=== PATIENT | female | born 1985 | race Caucasian/White ===

== ENCOUNTER 2016-10-16 15:29 | Emergency (ER) | payer OTHER ==
--- NOTE | 2016-10-16 16:27 | ED NURSING NOTES ---
Clinical Report - Nurses [facility] [place] [address] 10/16/2016 15:29 Patient: PENNY RODRIGUEZ NURSING PROGRESS NOTES ( Patient told admitting rep she did not wish to wait any longer and was leaving). --16:27 Kayla Bajwa, ER Tech1. DISPOSITION / DISCHARGE The patient left the Emergency Department before triage. The patient appears to be oriented x4. She stated is leaving the ED due to personal reasons and the long waiting time. She left the Emergency Department ambulatory and via private vehicle. ( pt notified front end software engineer and front end software engineer notified ER.). --16:32 Rica Cisneros R.N. Locked/Released at 10/16/2016 16:32 by Rica Cisneros R.N.
--- NOTE | 2016-10-16 16:27 | ED NURSING NOTES ---
Clinical Report - Nurses [facility] [place] [address] 10/16/2016 15:29 Patient: PENNY RODRIGUEZ NURSING PROGRESS NOTES ( Patient told admitting rep she did not wish to wait any longer and was leaving). --16:27 Kayla Bajwa, ER Tech1. DISPOSITION / DISCHARGE The patient left the Emergency Department before triage. The patient appears to be oriented x4. She stated is leaving the ED due to personal reasons and the long waiting time. She left the Emergency Department ambulatory and via private vehicle. ( pt notified front end driver and front end driver notified ER.). --16:32 Rica Cisneros R.N. Locked/Released at 10/16/2016 16:32 by Rica Cisneros R.N.
--- NOTE | 2016-10-16 16:32 | ED MAR SUMMARY ---
..... Medication Administration Record [facility] [address] [place], [place] [id number] Patient: PENNY RODRIGUEZ Visit ID: [id number] 31y, F Weight: (not available) Height/Length: (not available) BMI: (not available) ALLERGIES:
--- NOTE | 2016-10-16 16:32 | ED MED RECONCILIATION SUMMARY ---
Patient: PENNY RODRIGUEZ Medication Reconciliation Report [facility] VisitID: [id number] [address] [place] [address] 31y, F Registration Date/Time: 10/16/2016 Weight: (not available) Height/Length: (not available) BMI: (not available) ALLERGIES: The patient's Home Medications are listed below: Not obtained. The source(s) of the original Home Medication information: Not obtained. The following Medications were given to the patient in the Emergency Department: None. The following Medications were prescribed to the patient: None.
--- NOTE | 2016-10-16 16:32 | ED MAR SUMMARY ---
..... Medication Administration Record [facility] [address] [place] [place], [place] [id number] Patient: PENNY RODRIGUEZ Visit ID: [id number] 31y, F Weight: (not available) Height/Length: (not available) BMI: (not available) ALLERGIES:
--- NOTE | 2016-10-16 16:32 | ED MED RECONCILIATION SUMMARY ---
Patient: PENNY RODRIGUEZ Medication Reconciliation Report [facility] VisitID: [id number] [address] [place] [address] 31y, F Registration Date/Time: 10/16/2016 Weight: (not available) Height/Length: (not available) BMI: (not available) ALLERGIES: The patient's Home Medications are listed below: Not obtained. The source(s) of the original Home Medication information: Not obtained. The following Medications were given to the patient in the Emergency Department: None. The following Medications were prescribed to the patient: None.
== END 2016-10-16 16:30 | disposition left against medical advice (07) ==
LOC: ED SRH 15:29
DX: Z53.21 Procedure and treatment not carried out due to patient leaving prior to being seen by health care provider (principal)

== ENCOUNTER 2016-10-21 13:32 | Emergency (ER) | payer OTHER ==
--- NOTE | 2016-10-21 14:05 | ED ORDER SUMMARY ---
..... Patient: PENNY RODRIGUEZ OrderSheet [facility] VisitID: [id number] [address] [place] [address] 31y, F Registration Date/Time: 10/21/2016 ORDER SHEET Weight: 61.6 kg Allergies: Sulfa Antibiotics GENERAL ORDERS: MEDICATION ORDERS: Clindamycin PO 300 mg (NOW) (14:02 10/21/2016 Lynne Hair.A.-Jane) (14:[facility] IV FLUIDS: ORDER SHEET NOTES: [Electronically signed by Yesenia yHde (14:12 10/21/2016)] [Electronically signed by Kathleen Tai-Jane (14:27 10/21/2016)] [Electronically locked/signed by Yesenia Hyde (14:12 10/21/2016)]
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
--- NOTE | 2016-10-21 14:05 | ED CLINICAL REPORT ---
Clinical Report - Physicians/Mid Levels [facility] [address] [place] [address] 10/21/2016 13:32 Patient: PENNY RODRIGUEZ Time Seen: 14:16 Oct 21 2016. Arrived- By private vehicle. HISTORY OF PRESENT ILLNESS Chief Complaint: SKIN RASH. This started 2 - 3 days. (Patient admits to meth use earlier, has been on recent S, has had lesions to her chin, as well as lesions to her upper shoulder as well as hands, recent friend's with scabies. Patient concern for the same. Denies any shortness of breath, chest pain denies fevers or chills.). REVIEW OF SYSTEMS No hoarseness, nausea or difficulty with urination. ADDITIONAL NOTES The nursing notes have been reviewed. PHYSICAL EXAM Vital Signs: 10/21/2016 13:52 BP: 131/80. HR: 97. RR: 16. O2 saturation: 99%. Temp: 98.2 F. Appearance: Alert. ENT: Ears normal. Nose normal. ( uvula midline). Neck: Neck supple. No lymphadenopathy. CVS: Normal heart rate and rhythm. Heart sounds normal. Respiratory: No respiratory distress. Breath sounds normal. Skin: Skin warm. Erythema (of chin with minimal swelling, no indurations.). Skin rash present- posterior shoulder and interdigit maculapapular. PROGRESS AND PROCEDURES Course of Care: Patient here in the ER afebrile, with signs of cellulitis to the chin. Patient is otherwise stable, small maculopapular rash, with exposure to recent scabies, this will cover for both. Patient under influence in the ER. No other complaints, afebrile nonseptic. Stable for discharge. Patient is stable. The patient's symptoms are unchanged. Patient/family counseled. Disposition: Discharged. CLINICAL IMPRESSION Cellulitis of the chin. Substance abuse problems: abuse of methamphetamine. Substance dependence problems: dependence on methamphetamine. (under influence in ER). Scabies INSTRUCTIONS Prescription Medications: Clindamycin 300 mg: take 1 capsule orally every 6 hours for 7 days. No refills. Elimite 5% Cream: Shower and dry thoroughly, then apply cream to whole body from neck down, leave on 8 hours then shower thoroughly and launder clothes and bedclothes in hot water. Repeat in 1 week if needed. Dispense two (2) tubes. No refills. Substitution is permissible. Follow-up: Follow up with your doctor in four days. (Electronically signed by Kathleen Tai P.A.-C 10/21/2016 14:27)
--- NOTE | 2016-10-21 14:05 | ED ORDER SUMMARY ---
..... Patient: PENNY RODRIGUEZ OrderSheet [facility] VisitID: [id number] [address] [place] [address] 31y, F Registration Date/Time: 10/21/2016 ORDER SHEET Weight: 61.6 kg Allergies: Sulfa Antibiotics GENERAL ORDERS: MEDICATION ORDERS: Clindamycin PO 300 mg (NOW) (14:02 10/21/2016 Lynne Hair.A.-Jane) (14[facility] IV FLUIDS: ORDER SHEET NOTES: [Electronically signed by Yesenia Hyde (14:12 10/21/2016)] [Electronically signed by Kathleen Tai-Jane (14:27 10/21/2016)] [Electronically locked/signed by Yesenia Hyde (14:12 10/21/2016)]
--- NOTE | 2016-10-21 14:05 | ED CLINICAL REPORT ---
Clinical Report - Physicians/Mid Levels [facility] [address] [place] [address] 10/21/2016 13:32 Patient: PENNY RODRIGUEZ Time Seen: 14:16 Oct 21 2016. Arrived- By private vehicle. HISTORY OF PRESENT ILLNESS Chief Complaint: SKIN RASH. This started 2 - 3 days. (Patient admits to meth use earlier, has been on recent S, has had lesions to her chin, as well as lesions to her upper shoulder as well as hands, recent friend's with scabies. Patient concern for the same. Denies any shortness of breath, chest pain denies fevers or chills.). REVIEW OF SYSTEMS No hoarseness, nausea or difficulty with urination. ADDITIONAL NOTES The nursing notes have been reviewed. PHYSICAL EXAM Vital Signs: 10/21/2016 13:52 BP: 131/80. HR: 97. RR: 16. O2 saturation: 99%. Temp: 98.2 F. Appearance: Alert. ENT: Ears normal. Nose normal. ( uvula midline). Neck: Neck supple. No lymphadenopathy. CVS: Normal heart rate and rhythm. Heart sounds normal. Respiratory: No respiratory distress. Breath sounds normal. Skin: Skin warm. Erythema (of chin with minimal swelling, no indurations.). Skin rash present- posterior shoulder and interdigit maculapapular. PROGRESS AND PROCEDURES Course of Care: Patient here in the ER afebrile, with signs of cellulitis to the chin. Patient is otherwise stable, small maculopapular rash, with exposure to recent scabies, this will cover for both. Patient under influence in the ER. No other complaints, afebrile nonseptic. Stable for discharge. Patient is stable. The patient's symptoms are unchanged. Patient/family counseled. Disposition: Discharged. CLINICAL IMPRESSION Cellulitis of the chin. Substance abuse problems: abuse of methamphetamine. Substance dependence problems: dependence on methamphetamine. (under influence in ER). Scabies INSTRUCTIONS Prescription Medications: Clindamycin 300 mg: take 1 capsule orally every 6 hours for 7 days. No refills. Elimite 5% Cream: Shower and dry thoroughly, then apply cream to whole body from neck down, leave on 8 hours then shower thoroughly and launder clothes and bedclothes in hot water. Repeat in 1 week if needed. Dispense two (2) tubes. No refills. Substitution is permissible. Follow-up: Follow up with your doctor in four days. (Electronically signed by Kathleen Tai P.A.-C 10/21/2016 14:27)
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
--- NOTE | 2016-10-21 14:27 | ED MAR SUMMARY ---
..... Medication Administration Record [facility] [address] [place] [address] Patient: PENNY RODRIGUEZ Visit ID: [id number] 31y, F Weight: 61.6 kg Height/Length: 64 in BMI: 23.3 ALLERGIES: Sulfa Antibiotics Given 14:11 10/21/2016 Yesenia Hyde, Medication Administered: CLINDAMYCIN [PO], Dose: 300 mg PO. Medication Ordered: Clindamycin PO 300 mg (NOW).
--- NOTE | 2016-10-21 14:27 | ED MED RECONCILIATION SUMMARY ---
Patient: PENNY RODRIGUEZ Medication Reconciliation Report [facility] VisitID: [id number] [address] [place] [address] 31y, F Registration Date/Time: 10/21/2016 Weight: 61.6 kg Height/Length: 64 in. BMI: 23.3 ALLERGIES: Sulfa Antibiotics The patient's Home Medications are listed below: THE FOLLOWING MEDICATIONS NEED TO BE RECONCILED: Keflex Oral The source(s) of the original Home Medication information: Not obtained. The following Medications were given to the patient in the Emergency Department: Clindamycin [PO] PO 300 mg, administered: 10/21/2016 2:11:00 PM The following Medications were prescribed to the patient: Clindamycin 300 mg: take 1 capsule orally every 6 hours for 7 days. No refills. -- Kathleen Tai, P.A.Alhaji Elimite 5% Cream: Shower and dry thoroughly, then apply cream to whole body from neck down, leave on 8 hours then shower thoroughly and launder clothes and bedclothes in hot water. Repeat in 1 week if needed. Dispense two (2) tubes. No refills. Substitution is permissible. -- Kathleen Tai, P.A.-C
--- NOTE | 2016-10-21 14:27 | ED MED RECONCILIATION SUMMARY ---
Patient: PENNY RODRIGUEZ Medication Reconciliation Report [facility] VisitID: [id number] [address] [place] [address] 31y, F Registration Date/Time: 10/21/2016 Weight: 61.6 kg Height/Length: 64 in. BMI: 23.3 ALLERGIES: Sulfa Antibiotics The patient's Home Medications are listed below: THE FOLLOWING MEDICATIONS NEED TO BE RECONCILED: Keflex Oral The source(s) of the original Home Medication information: Not obtained. The following Medications were given to the patient in the Emergency Department: Clindamycin [PO] PO 300 mg, administered: 10/21/2016 2:11:00 PM The following Medications were prescribed to the patient: Clindamycin 300 mg: take 1 capsule orally every 6 hours for 7 days. No refills. -- Kathleen Tai, P.A.Alhaji Elimite 5% Cream: Shower and dry thoroughly, then apply cream to whole body from neck down, leave on 8 hours then shower thoroughly and launder clothes and bedclothes in hot water. Repeat in 1 week if needed. Dispense two (2) tubes. No refills. Substitution is permissible. -- Kathleen Tai, P.A.-C
--- NOTE | 2016-10-21 14:27 | ED DISCHARGE INSTRUCTIONS ---
Patient: PENNY RODRIGUEZ General Instructions [facility] VisitID: [id number] [place] [address] 31y, F Registration Date/Time: 10/21/2016 Cellulitis of the chin. Substance abuse problems: abuse of methamphetamine. Substance dependence problems: dependence on methamphetamine. (under influence in ER). Scabies INSTRUCTIONS Prescription Medications: Clindamycin 300 mg: take 1 capsule orally every 6 hours for 7 days. No refills. Elimite 5% Cream: Shower and dry thoroughly, then apply cream to whole body from neck down, leave on 8 hours then shower thoroughly and launder clothes and bedclothes in hot water. Repeat in 1 week if needed. Dispense two (2) tubes. No refills. Substitution is permissible. Follow-up: Follow up with your doctor in four days. ADDITIONAL INFORMATION Cellulitis You have an infection of the skin known as cellulitis. This usually starts with a scrape, cut, insect bite, blister or other opening in the skin which becomes infected. This is a serious condition. It must be watched closely to be sure the infection is not spreading. With antibiotic treatment, the size of the red area will gradually shrink in size until the skin returns to normal. This will take 7-10 days. The red area should never increase in size once the antibiotic medicine has been started. Occasionally, an infection will be resistant to one antibiotic and another one will have to be used. Home Care: 1) Limit the use of the affected part, since excess movement can cause the infection to spread. 2) If the infection is on your leg, walk as little as possible during the first few days of the treatment. Keep your leg elevated while sitting. This will reduce swelling. 3) Take all of the antibiotic medicine exactly as directed until it is gone. Be careful not to miss any doses, especially during the first seven days. Follow Up with your doctor or this facility as directed. Check the infected area daily for the warning signs listed below. Get Prompt Medical Attention if any of the following occur: -- Spreading area of redness -- Increasing swelling or pain -- Appearance of pus or drainage -- Fever over 100.4 F (38.0 C) oral, or over 101.4 F (38.6 C) rectal, after two days on antibiotics Facial Cellulitis You have an infection of the skin known as cellulitis. This usually starts with a scrape, cut or insect bite which becomes infected. It may also occur from an infected oil gland (pimple) or hair follicle. This can be a serious condition and must be watched closely to be sure the infection is not spreading. With antibiotic treatment, the size of the red area will gradually shrink in size until the skin returns to normal. This will take 7-10 days. The red area should never increase in size once the antibiotic medicine has been started. Occasionally, an infection will be resistant to one antibiotic and another one will have to be used. Home Care: 1) Take all of the antibiotic medicine exactly as prescribed until it is gone. Be careful not to miss any doses, especially during the first few days. 2) A cool compress (face cloth soaked in cool water) applied to the face may help with the swelling and pain. 3) You may use acetaminophen (Tylenol) or ibuprofen (Motrin, Advil) to control pain, unless another medicine was prescribed. [ NOTE : If you have chronic liver or kidney disease or ever had a stomach ulcer or GI bleeding, talk with your doctor before using these medicines.] (Aspirin should never be used in anyone under 18 years of age who is ill with a fever. It may cause severe liver damage.) Follow Up with your doctor or this facility as directed. Check the infected area daily for the warning signs listed below. Get Prompt Medical Attention if any of the following occur: -- Increasing area of redness, swelling or pain -- Pus or fluid drainage from the skin or the eye -- Fever of 100.5 F (38 C) oral or 101.5 F (38.6 C) rectal for more than two days on antibiotics -- Eyelid swells shut -- Increasing headache or neck pain -- Unusual drowsiness or confusion -- Convulsion (seizure) Scabies Scabies is a skin disease caused by a tiny insect that can only be seen with a microscope. Scabies roseline under the skin and cause an itchy bumpy rash on the hands, feet, armpits, buttocks and groin area. Preventing Spread To Others: Scabies is highly contagious. It is easily spread by close personal contact or by sharing bed linens or clothing used by an infected person. It may take 4-6 weeks for symptoms to appear after being exposed. Everyone living in the house with an infected person, as well as sexual partners of an infected person, should be treated at the same time. After the first treatment, you will no longer be contagious and you may return to work, school or daycare. Home Care: Clothing Care Machine wash in hot water all sheets, towels, pillowcases, underwear, pajamas and any other clothing recently worn. Use the hot cycle of a dryer or use a hot iron to sterilize. Items that are difficult to wash such as coats, jackets, blankets and spreads can be sealed in a plastic trash bag for four days. (The insects after three days off the human body.) Using Medicine Use the medicine (Kwell or Elimite) exactly as prescribed. Apply it at bedtime from the chin down to your toes, covering all of your skin. Do this even in areas that don't seem infected! Avoid getting the medicine in your eyes and the sensitive areas around the vagina and tip of the penis. If it gets in a sensitive area, rinse with lots of water. Wash off the medicine 8-14 hours later. Do not leave it on the skin longer than directed and do not use it more often than directed. Otherwise, side effects may occur. A single treatment will kill the mites in the skin right away, but it may take 2-4 weeks for all of the itching and rash to go away. Itching may increase slightly right after the treatment, but you should be better by the end of the first week. Women should tell their doctor if they are nursing or think they may be before using this medicine. Itching Oral Benadryl (diphenhydramine) is an antihistamine available at drug and grocery stores. Unless a prescription antihistamine was given, Benadryl may be used to reduce itching if large areas of the skin are involved. Use lower doses during the daytime and higher doses at bedtime since the drug may make you sleepy. [NOTE: Do not use Benadryl if you have glaucoma or if you are a man with trouble urinating due to an enlarged prostate.] Claritin (loratidine) is an antihistamine that causes less drowsiness and is a good alternative for daytime use. For severe itch attacks, apply an ice pack (ice cubes in a plastic bag, wrapped in a towel) or use Lanacaine, Lanacort or Solarcaine (or other medicines containing benzocaine, sold without a prescription). Follow Up with your doctor or as directed if your symptoms do not improve after 1 week. Get Prompt Medical Attention if any of the following occur: Increasing redness of the skin Yellow-brown crusts or drainage from the sores Fever of 100.4F (38C) or higher, or as directed by your healthcare provider Permethrin Topical cream What is this medicine? PERMETHRIN (per METH rin) skin cream is used to treat scabies. How should I use this medicine? This medicine is for external use only. Do not take by mouth. Follow the directions on the prescription label. A bath or shower is NOT recommended before applying this medicine. Thoroughly rub the cream into all skin surfaces, from your head to the soles of your feet. It is important to apply it everywhere on your body, not just where the rash is. Apply the cream between fingers and toe creases, in the folds of the wrist and waistline, in the cleft of the buttocks, on the genitals, and in the belly button. Use a toothpick to apply the cream beneath your fingernails and toenails. Nails should be cut short. If you have little or no hair, or you are applying the cream to an or young child, make sure you rub the cream into the neck, scalp, hairline, temples, and forehead. Leave it on for 8 to 14 hours, then remove it by bathing and shampooing. If you are applying this medicine to another person, wear plastic or disposable gloves to protect yourself from infestation. Do not get this medicine in your eyes. If you do, rinse out with plenty of cool tap water. Talk to your clay thrower regarding the use of this medicine in children. While this drug may be prescribed for children as young as 2 months of age for selected conditions, precautions do apply. What side effects may I notice from receiving this medicine? Side effects that usually do not require medical attention (report to your doctor or health healthcare representative if they continue or are bothersome): itching numbness rash redness or mild swelling of the skin stinging or burning tingling sensation What may interact with this medicine? Interactions are not expected. Do not use any other skin products on the affected area without telling your doctor or health healthcare representative. What if I miss a dose? This does not apply. Where should I keep my medicine? Keep out of the reach of children. Store at room temperature away from heat and direct light. Do not refrigerate or freeze. Throw away any unused medicine after the expiration date. What should I tell my health care provider before I take this medicine? They need to know if you have any of these conditions: asthma an unusual or allergic reaction to permethrin, veterinary or household insecticides, other medicines, chrysanthemums, foods, dyes, or preservatives or trying to get breast-feeding What should I watch for while using this medicine? It is not unusual for itching and rash to continue for as long as 2 to 4 weeks after treatment. These symptoms may be a temporary reaction to the remains of the mites. This does not mean this cream did not work or that it needs to be reapplied. If you feel that the itching and rash is intense or if it continues beyond 4 weeks, talk to your doctor or health healthcare representative right away. Scabies is spread by direct skin contact with an infected person. Family members and sexual partners may require treatment with this medicine. You should discuss this with your doctor or health healthcare representative. Using a normal washing cycle, you should wash all clothing, towels and bed linen that has touched your skin. You do not need to rewash clean clothing that has not yet been worn. [place], furniture, rugs, floors, and durand do not need to be cleaned in any special manner. You have been given the following additional information: Cellulitis Cellulitis, Facial Scabies Permethrin Topical cream (Electronically signed by Kathleen Tai P.A.-C 10/21/2016 14:27)
--- NOTE | 2016-10-21 14:27 | ED MAR SUMMARY ---
..... Medication Administration Record [facility] [address] [place] [address] Patient: PENNY RODRIGUEZ Visit ID: [id number] 31y, F Weight: 61.6 kg Height/Length: 64 in BMI: 23.3 ALLERGIES: Sulfa Antibiotics Given 14:11 10/21/2016 Yesenia Hyde, Medication Administered: CLINDAMYCIN [PO], Dose: 300 mg PO. Medication Ordered: Clindamycin PO 300 mg (NOW).
== END 2016-10-21 14:10 | disposition home or self-care (01) ==
LOC: ED SRH 13:32
DX: L03.211 Cellulitis of face (principal); B86 Scabies; F15.20 Other stimulant dependence, uncomplicated

== ENCOUNTER 2016-10-21 19:56 | Emergency (ER) | payer OTHER ==
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
--- NOTE | 2016-10-21 21:25 | ED ORDER SUMMARY ---
..... Patient: PENNY RODRIGUEZ OrderSheet [facility] VisitID: [id number] [place] [address] 31y, F Registration Date/Time: 10/21/2016 ORDER SHEET Weight: 61.6 kg Allergies: Bactrim GENERAL ORDERS: EKG - ER Stat (20:20 10/21/2016 Tejinder R.N. verbal order read back to EKoroleva P.A.-C) (Ack 20:22 CHagerty ER Community Facilitator) (20:30 CHagerty ER Community Facilitator) Chest 2V Urgent (20:32 10/21/2016 EKoroleva P.A.-C) (20:39 JEverettElena R.N.) Cardiac Panel Stat (20:32 10/21/2016 EKoroleva P.A.-C) (Ack 20:43 CHagerty ER Community Facilitator) (20:52 JEverettElena R.N.) MEDICATION ORDERS: Zofran ODT PO 4 mg (NOW) (21:08 10/21/2016 EKoroleva P.A.-C) (21:11 Tejinder R.N.) Clindamycin PO 300 mg (NOW) (21:24 10/21/2016 EKoroleva P.A.-C) (Ack 21:32 JDeElena R.N.) (22:01 ReyesDeElena R.N.) IV FLUIDS: ORDER SHEET NOTES: [Electronically signed by Kathleen Tai PFarhadAFarhad-C (21:46 10/21/2016)] [Electronically signed by Saran Chacon R.N. (22:01 10/21/2016)] [Electronically locked/signed by Saran Chacon R.N. (22:10/21/2016)]
--- NOTE | 2016-10-21 21:25 | ED ORDER SUMMARY ---
..... Patient: PENNY RODRIGUEZ OrderSheet [facility] VisitID: [id number] [place] [address] 31y, F Registration Date/Time: 10/21/2016 ORDER SHEET Weight: 61.6 kg Allergies: Bactrim GENERAL ORDERS: EKG - ER Stat (20:20 10/21/2016 Tejinder R.N. verbal order read back to EKoroleva P.A.-C) (Ack 20:22 CHagerty ER Electrotyper Apprentice) (20:30 CHagerty ER Electrotyper Apprentice) Chest 2V Urgent (20:32 10/21/2016 EKoroleva P.A.-C) (20:39 JEverettElena R.N.) Cardiac Panel Stat (20:32 10/21/2016 EKoroleva P.A.-C) (Ack 20:43 CHagerty ER Electrotyper Apprentice) (20:52 JEverettElena R.N.) MEDICATION ORDERS: Zofran ODT PO 4 mg (NOW) (21:08 10/21/2016 EKoroleva P.A.-C) (21:11 Tejinder R.N.) Clindamycin PO 300 mg (NOW) (21:24 10/21/2016 EKoroleva P.A.-C) (Ack 21:32 JDeElena R.N.) (22:01 ReyesDeElena R.N.) IV FLUIDS: ORDER SHEET NOTES: [Electronically signed by Kathleen Tai PFarhadAFarhad-C (21:46 10/21/2016)] [Electronically signed by Saran Chacon R.N. (22:01 10/21/2016)] [Electronically locked/signed by Saran Chacon R.N. (22:10/21/2016)]
--- NOTE | 2016-10-21 21:25 | ED CLINICAL REPORT ---
Clinical Report - Physicians/Mid Levels [facility] [address] [place] [address] 10/21/2016 19:57 Patient: [id number] Time Seen: 20:34 Oct 21 2016. Arrived- By private vehicle. Historian- patient. HISTORY OF PRESENT ILLNESS Chief Complaint: "GOT THE SHAKES". Wants to stop drug use. No fever, vomiting, diarrhea, tremors or seizure. She has had nausea. Not confused. Patient reports sensation of bugs crawling on her. Reports chest pain. Reports back pain with shoulder pain. He reports. Sats are crawling on her face and skin. Pt with no fevers. REcent exposure to scabies, believes warms on her skin. REcent skin rash. No injuries noted. REVIEW OF SYSTEMS The patient has not had weight loss. No headache, dizziness, sore throat or joint pain. No difficulty walking. All systems otherwise negative, except as recorded above. SOCIAL HISTORY History of drug use meth. Has place to stay. ADDITIONAL NOTES The nursing notes have been reviewed. PHYSICAL EXAM Vital Signs: 10/21/2016 20:08 BP: 119/82. HR: 100. RR: 18. O2 saturation: 100%. Temp: 99 F. Pain level now: 8/10. Appearance: Alert. No acute distress. Head: Head atraumatic. ENT: Airway intact. Neck: Normal inspection. No meningeal signs. CVS: Normal heart rate and rhythm. Heart sounds normal. Respiratory: No respiratory distress. Breath sounds normal. No decreased air movement. Back: Normal inspection. Skin: Skin warm. Normal skin color. Neuro: Alert. LABS, X-RAYS, AND EKG EKG: EKG time: (2029). No acute process. No acute ischemia. Rate: 94. Normal P waves. Normal TEMO. Normal QRS complex. Normal axis. Normal ST and T waves and QT. The study has been interpreted contemporaneously. The study has been independently viewed by me. The EKG appears to be a good tracing. Chest X-ray: No acute disease. Normal lung markings present. Normal heart size. Mediastinum normal. Great vessels normal. Interpretation time: 2100. PROGRESS AND PROCEDURES Course of Care: No new murmor, afebrile. Pt with very vague multiple sx, with second er visit. PERC: 0 criteria No need for further workup, as <2% chance of PE. Patient is stable. Patient/family counseled. Medical Decision Making: The differential diagnosis includes, but is not limited to, coronary artery disease, pulmonary embolism, aortic dissection, pneumonia, gastroesophageal reflux disease, esophageal spasm, chest wall pain, costochondritis and pleurisy. The patient's Well's criteria suggests low risk. CLINICAL IMPRESSION Chronic substance abuse. Facial cellulitis Scabies INSTRUCTIONS (please take your scabies medications as well as your clindamycin). (Electronically signed by Kathleen Tai P.A.-C 10/21/2016 21:46)
--- NOTE | 2016-10-21 21:25 | ED CLINICAL REPORT ---
Clinical Report - Physicians/Mid Levels [facility] [address] [place] [place] [address] 10/21/2016 19:57 [id number] Time Seen: 20:34 Oct 21 2016. Arrived- By private vehicle. Historian- patient. HISTORY OF PRESENT ILLNESS Chief Complaint: "GOT THE SHAKES". Wants to stop drug use. No fever, vomiting, diarrhea, tremors or seizure. She has had nausea. Not confused. Patient reports sensation of bugs crawling on her. Reports chest pain. Reports back pain with shoulder pain. He reports. Sats are crawling on her face and skin. Pt with no fevers. REcent exposure to scabies, believes warms on her skin. REcent skin rash. No injuries noted. REVIEW OF SYSTEMS The patient has not had weight loss. No headache, dizziness, sore throat or joint pain. No difficulty walking. All systems otherwise negative, except as recorded above. SOCIAL HISTORY History of drug use meth. Has place to stay. ADDITIONAL NOTES The nursing notes have been reviewed. PHYSICAL EXAM Vital Signs: 10/21/2016 20:08 BP: 119/82. HR: 100. RR: 18. O2 saturation: 100%. Temp: 99 F. Pain level now: 8/10. Appearance: Alert. No acute distress. Head: Head atraumatic. ENT: Airway intact. Neck: Normal inspection. No meningeal signs. CVS: Normal heart rate and rhythm. Heart sounds normal. Respiratory: No respiratory distress. Breath sounds normal. No decreased air movement. Back: Normal inspection. Skin: Skin warm. Normal skin color. Neuro: Alert. LABS, X-RAYS, AND EKG EKG: EKG time: (2029). No acute process. No acute ischemia. Rate: 94. Normal P waves. Normal TEMO. Normal QRS complex. Normal axis. Normal ST and T waves and QT. The study has been interpreted contemporaneously. The study has been independently viewed by me. The EKG appears to be a good tracing. Chest X-ray: No acute disease. Normal lung markings present. Normal heart size. Mediastinum normal. Great vessels normal. Interpretation time: 2100. PROGRESS AND PROCEDURES Course of Care: No new murmor, afebrile. Pt with very vague multiple sx, with second er visit. PERC: 0 criteria No need for further workup, as <2% chance of PE. Patient is stable. Patient/family counseled. Medical Decision Making: The differential diagnosis includes, but is not limited to, coronary artery disease, pulmonary embolism, aortic dissection, pneumonia, gastroesophageal reflux disease, esophageal spasm, chest wall pain, costochondritis and pleurisy. The patient's Well's criteria suggests low risk. CLINICAL IMPRESSION Chronic substance abuse. Facial cellulitis Scabies INSTRUCTIONS (please take your scabies medications as well as your clindamycin). (Electronically signed by Kathleen Tai P.A.-C 10/21/2016 21:46)
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
--- NOTE | 2016-10-21 21:52 | DIAGNOSTIC IMAGING REPORT ---
PROCEDURE: XR CHEST 2 VIEW INDICATION: CHEST PAIN TECHNIQUE: PA and lateral views. COMPARISON: Para chest x-ray on 05/06/2007. FINDINGS: Lungs are clear. Heart and mediastinum are normal. Thorax is normal. IMPRESSION: 1. Negative chest.
--- NOTE | 2016-10-21 22:02 | ED MAR SUMMARY ---
..... Medication Administration Record [facility] [address] [place] [address] Patient: PENNY RODRIGUEZ Visit ID: [id number] 31y, F Weight: 61.6 kg Height/Length: 64 in BMI: 23.3 ALLERGIES: Bactrim Given 21:11 10/21/2016 Albert Graham, RFarhadN. Medication Administered: ZOFRAN ODT [PO] (ONDANSETRON), Dose: 4 mg Tablets PO. Medication Ordered: Zofran ODT PO 4 mg (NOW). Given 21:40 10/21/2016 Saran Chacon RFarhadNFarhad Medication Administered: CLINDAMYCIN [PO], Dose: 300 mg Capsules PO. Medication Ordered: Clindamycin PO 300 mg (NOW).
--- NOTE | 2016-10-21 22:02 | ED DISCHARGE INSTRUCTIONS ---
Patient: PENNY RODRIGUEZ General Instructions [facility] VisitID: [id number] [place] [address] 31y, F Registration Date/Time: 10/21/2016 Chronic substance abuse. Facial cellulitis Scabies INSTRUCTIONS (please take your scabies medications as well as your clindamycin). ADDITIONAL INFORMATION Facial Cellulitis You have an infection of the skin known as cellulitis. This usually starts with a scrape, cut or insect bite which becomes infected. It may also occur from an infected oil gland (pimple) or hair follicle. This can be a serious condition and must be watched closely to be sure the infection is not spreading. With antibiotic treatment, the size of the red area will gradually shrink in size until the skin returns to normal. This will take 7-10 days. The red area should never increase in size once the antibiotic medicine has been started. Occasionally, an infection will be resistant to one antibiotic and another one will have to be used. Home Care: 1) Take all of the antibiotic medicine exactly as prescribed until it is gone. Be careful not to miss any doses, especially during the first few days. 2) A cool compress (face cloth soaked in cool water) applied to the face may help with the swelling and pain. 3) You may use acetaminophen (Tylenol) or ibuprofen (Motrin, Advil) to control pain, unless another medicine was prescribed. [ NOTE : If you have chronic liver or kidney disease or ever had a stomach ulcer or GI bleeding, talk with your doctor before using these medicines.] (Aspirin should never be used in anyone under 18 years of age who is ill with a fever. It may cause severe liver damage.) Follow Up with your doctor or this facility as directed. Check the infected area daily for the warning signs listed below. Get Prompt Medical Attention if any of the following occur: -- Increasing area of redness, swelling or pain -- Pus or fluid drainage from the skin or the eye -- Fever of 100.5 F (38 C) oral or 101.5 F (38.6 C) rectal for more than two days on antibiotics -- Eyelid swells shut -- Increasing headache or neck pain -- Unusual drowsiness or confusion -- Convulsion (seizure) Scabies Scabies is a skin disease caused by a tiny insect that can only be seen with a microscope. Scabies roseline under the skin and cause an itchy bumpy rash on the hands, feet, armpits, buttocks and groin area. Preventing Spread To Others: Scabies is highly contagious. It is easily spread by close personal contact or by sharing bed linens or clothing used by an infected person. It may take 4-6 weeks for symptoms to appear after being exposed. Everyone living in the house with an infected person, as well as sexual partners of an infected person, should be treated at the same time. After the first treatment, you will no longer be contagious and you may return to work, school or daycare. Home Care: Clothing Care Machine wash in hot water all sheets, towels, pillowcases, underwear, pajamas and any other clothing recently worn. Use the hot cycle of a dryer or use a hot iron to sterilize. Items that are difficult to wash such as coats, jackets, blankets and spreads can be sealed in a plastic trash bag for four days. (The insects after three days off the human body.) Using Medicine Use the medicine (Kwell or Elimite) exactly as prescribed. Apply it at bedtime from the chin down to your toes, covering all of your skin. Do this even in areas that don't seem infected! Avoid getting the medicine in your eyes and the sensitive areas around the vagina and tip of the penis. If it gets in a sensitive area, rinse with lots of water. Wash off the medicine 8-14 hours later. Do not leave it on the skin longer than directed and do not use it more often than directed. Otherwise, side effects may occur. A single treatment will kill the mites in the skin right away, but it may take 2-4 weeks for all of the itching and rash to go away. Itching may increase slightly right after the treatment, but you should be better by the end of the first week. Women should tell their doctor if they are nursing or think they may be before using this medicine. Itching Oral Benadryl (diphenhydramine) is an antihistamine available at drug and grocery stores. Unless a prescription antihistamine was given, Benadryl may be used to reduce itching if large areas of the skin are involved. Use lower doses during the daytime and higher doses at bedtime since the drug may make you sleepy. [NOTE: Do not use Benadryl if you have glaucoma or if you are a man with trouble urinating due to an enlarged prostate.] Claritin (loratidine) is an antihistamine that causes less drowsiness and is a good alternative for daytime use. For severe itch attacks, apply an ice pack (ice cubes in a plastic bag, wrapped in a towel) or use Lanacaine, Lanacort or Solarcaine (or other medicines containing benzocaine, sold without a prescription). Follow Up with your doctor or as directed if your symptoms do not improve after 1 week. Get Prompt Medical Attention if any of the following occur: Increasing redness of the skin Yellow-brown crusts or drainage from the sores Fever of 100.4F (38C) or higher, or as directed by your healthcare provider You have been given the following additional information: Cellulitis, Facial Scabies (Electronically signed by Kathleen Tai P.A.-C 10/21/2016 21:46)
--- NOTE | 2016-10-21 22:02 | ED MED RECONCILIATION SUMMARY ---
Patient: PENNY RODRIGUEZ Medication Reconciliation Report [facility] VisitID: [id number] [address] [place] [address] 31y, F Registration Date/Time: 10/21/2016 Weight: 61.6 kg Height/Length: 64 in. BMI: 23.3 ALLERGIES: Bactrim The patient's Home Medications are listed below: THE FOLLOWING MEDICATIONS NEED TO BE RECONCILED: Clindamycin HCl Oral The source(s) of the original Home Medication information: patient The following Medications were given to the patient in the Emergency Department: Zofran ODT [PO] PO 4 mg, administered: 10/21/2016 9:11:00 PM Clindamycin [PO] PO 300 mg, administered: 10/21/2016 9:40:00 PM The following Medications were prescribed to the patient: None.
--- NOTE | 2016-10-21 22:02 | ED MED RECONCILIATION SUMMARY ---
Patient: PENNY RODRIGUEZ Medication Reconciliation Report [facility] VisitID: [id number] [address] [place] [address] 31y, F Registration Date/Time: 10/21/2016 Weight: 61.6 kg Height/Length: 64 in. BMI: 23.3 ALLERGIES: Bactrim The patient's Home Medications are listed below: THE FOLLOWING MEDICATIONS NEED TO BE RECONCILED: Clindamycin HCl Oral The source(s) of the original Home Medication information: patient The following Medications were given to the patient in the Emergency Department: Zofran ODT [PO] PO 4 mg, administered: 10/21/2016 9:11:00 PM Clindamycin [PO] PO 300 mg, administered: 10/21/2016 9:40:00 PM The following Medications were prescribed to the patient: None.
--- NOTE | 2016-10-21 22:02 | ED MAR SUMMARY ---
..... Medication Administration Record [facility] [address] [place] [address] Patient: PENNY RODRIGUEZ Visit ID: [id number] 31y, F Weight: 61.6 kg Height/Length: 64 in BMI: 23.3 ALLERGIES: Bactrim Given 21:11 10/21/2016 Ablert Graham, RFarhadN. Medication Administered: ZOFRAN ODT [PO] (ONDANSETRON), Dose: 4 mg Tablets PO. Medication Ordered: Zofran ODT PO 4 mg (NOW). Given 21:40 10/21/2016 Saran Chacon RFarhadNFarhad Medication Administered: CLINDAMYCIN [PO], Dose: 300 mg Capsules PO. Medication Ordered: Clindamycin PO 300 mg (NOW).
== END 2016-10-21 21:45 | disposition home or self-care (01) ==
LOC: ED SRH 19:56
DX: F15.20 Other stimulant dependence, uncomplicated (principal); L03.211 Cellulitis of face; B86 Scabies; R07.9 Chest pain, unspecified
CPT/HCPCS: 90100; 90616; 92610; 92720; 95059

== ENCOUNTER 2017-01-06 23:45 | Day surgery (SDC) | payer OTHER ==
--- NOTE | 2017-01-07 03:39 | ED ORDER SUMMARY ---
..... Patient: PENNY RODRIGUEZ OrderSheet [facility] VisitID: [id number] [address] [place] [address] 31y, F Registration Date/Time: 01/06/2017 ORDER SHEET Weight: 62.1 kg (stated) Allergies: Bactrim GENERAL ORDERS: Urine Urgent (00:01/07/2017 Carolyne Quijano) (Ack 0:06 SRedmond) (0:16 AMcQuoid ER Tech1) (Cancelled: Physician Order0:17 Carolyne Quijano) Urine Drug Screen Urgent (00:01/07/2017 Carolyne Quijano) (Ack 0:06 SRedmond) (0:16 AMcQuoid ER Tech1) UA-Culture if indicated Urgent (00:01/07/2017 Carolyne Quijano) (Ack 0:06 SRedmond) (0:16 AMcQuoid ER Tech1) GC/Chlamydia (Cervix) (...) Urgent (00:17 01/07/2017 Carolyne Quijano) (Ack 0:29 SRedmond) (0:56 JDeElena R.N.) Wet Prep (Cervix) (...) Urgent (00:01/07/2017 Carolyne Quijano) (Ack 0:29 SRedmond) (0:56 JDeElena R.N.) CBC w Diff Urgent (00:01/07/2017 Carolyne Quijano) (Ack 0:29 SRedmond) (0:30 JDeElena R.N.) CMP Urgent (00:01/07/2017 Carolyne Quijano) (Ack 0:29 SRedmond) (0:30 JDeElena R.N.) Serum Quantitative Urgent (00:01/07/2017 Carolyne Quijano) (Ack 0:29 SRedmond) (0:30 JDeElena R.N.) Type & Rh Urgent (00:01/07/2017 Carolyne Quijano) (Ack 0:29 SRedmond) (0:30 JDeElena R.N.) US OB 1st Trimester w Transvag (~ 10 weeks ago) Urgent (00:58 01/07/2017 Carolyne Quijano) (Ack 1:00 SRedmond) (2:14 Anayeli Renee.N.) Type & Screen Urgent (01:52 01/07/2017 Carolyne Quijano) (1:53 AMcQuoid ER Tech1) MEDICATION ORDERS: IV FLUIDS: IV NS : initial bolus none -, then 1000 mL/hr for X1 (NOW) (00:17 01/07/2017 Carolyne Quijano) (Ack 0:19 Anayeli R.N.) (1:01 Anayeli R.N.) Morphine IV 4 mg (HIGH ALERT MEDICATION, NOW) (01:59 01/07/2017 Carolyne Quijano) (Ack 2:02 Anayeli R.N.) (Cancelled: Patient Refusal2:14 Anayeli R.Jairon) ORDER SHEET NOTES: [Electronically signed by Michael Brannon Dr. (03:43 01/07/2017)] [Electronically signed by Saran Chacon R.N. (04:09 01/07/2017)] [Electronically locked/signed by Saran Chacon R.N. (04:09 01/07/2017)]
--- NOTE | 2017-01-07 03:39 | ED ORDER SUMMARY ---
..... Patient: PENNY RODRIGUEZ OrderSheet [facility] VisitID: [id number] [address] [place] [address] 31y, F Registration Date/Time: 01/06/2017 ORDER SHEET Weight: 62.1 kg (stated) Allergies: Bactrim GENERAL ORDERS: Urine Urgent (00:01/07/2017 Carolyne Quijano) (Ack 0:06 SRedmond) (0:16 AMcQuoid ER Tech1) (Cancelled: Physician Order0:17 Carolyne Quijano) Urine Drug Screen Urgent (00:01/07/2017 Carolyne Quijano) (Ack 0:06 SRedmond) (0:16 AMcQuoid ER Tech1) UA-Culture if indicated Urgent (00:01/07/2017 Carolyne Quijano) (Ack 0:06 SRedmond) (0:16 AMcQuoid ER Tech1) GC/Chlamydia (Cervix) (...) Urgent (00:17 01/07/2017 Carolyne Quijano) (Ack 0:29 SRedmond) (0:56 JDeElena R.N.) Wet Prep (Cervix) (...) Urgent (00:01/07/2017 Carolyne Quijano) (Ack 0:29 SRedmond) (0:56 JDeElena R.N.) CBC w Diff Urgent (00:01/07/2017 Carolyne Quijano) (Ack 0:29 SRedmond) (0:30 JDeElena R.N.) CMP Urgent (00:01/07/2017 Carolyne Quijano) (Ack 0:29 SRedmond) (0:30 JDeElena R.N.) Serum Quantitative Urgent (00:01/07/2017 Carolyne Quijano) (Ack 0:29 SRedmond) (0:30 JDeElena R.N.) Type & Rh Urgent (00:01/07/2017 Carolyne Quijano) (Ack 0:29 SRedmond) (0:30 JDeElena R.N.) US OB 1st Trimester w Transvag (~ 10 weeks ago) Urgent (00:58 01/07/2017 Carolyne Quijano) (Ack 1:00 SRedmond) (2:14 Anayeli Renee.N.) Type & Screen Urgent (01:52 01/07/2017 Carolyne Quijano) (1:53 AMcQuoid ER Tech1) MEDICATION ORDERS: IV FLUIDS: IV NS : initial bolus none -, then 1000 mL/hr for X1 (NOW) (00:17 01/07/2017 Carolyne Quijano) (Ack 0:19 Anayeli R.N.) (1:01 Anayeli R.N.) Morphine IV 4 mg (HIGH ALERT MEDICATION, NOW) (01:59 01/07/2017 Carolyne Quijano) (Ack 2:02 Anayeli R.N.) (Cancelled: Patient Refusal2:14 Anayeli R.Jairon) ORDER SHEET NOTES: [Electronically signed by Michael Brannon Dr. (03:43 01/07/2017)] [Electronically signed by Saran Chacon R.N. (04:09 01/07/2017)] [Electronically locked/signed by Saran Chacon R.N. (04:09 01/07/2017)]
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
--- NOTE | 2017-01-07 03:57 | History & Physical Report ---
Admission Admit Date 01/07/17 History Chief Complaint Ectopic History of Present Illness 31 yo presents to ER with c/o vaginal bleeding and diffuse pelvic pain, worse on right. Was seen in an Urgent Care a couple of days ago and was told that she was and could have an ectopic due to the pain. No u/s was performed at that time, just a test. In the ER today an u/s confirmed right ectopic adjacent to the right ovary. She does have a history of drug use and reports using Methamphetamine 3 days ago. Patient History 1. Ectopic Social History Postive drug/tobacco/alcohol Medications and Allergies Medications No home meds Allergies Coded Allergies: Alprazolam (05/06/07) Benzodiazepines (05/06/07) Morphine (05/06/07) Sulfa Drugs (05/06/07) Trimethoprim (05/06/07) Review of Systems Constitutional Denies: Fever, Chills, Sweats. Respiratory Denies: Cough. Cardiovascular Denies: Chest Pain. Gastrointestinal Abdominal Pain. Denies: Nausea, Vomiting, Diarrhea, Constipation. Genitourinary Denies: Dysuria, Frequency. Physical Exam Vital Signs / I&Os 110s-120s/70s-80s, 100s, 12, 100% General Appearance Alert, Oriented X3, Cooperative, No acute distress HEENT Normal exam, Atraumatic Lungs Normal exam Cardiovascular Normal exam Abdomen Soft, tender to palpation bilateral lower quadrants, worse in right lower quadrant Extremities Normal exam LAB Results Laboratory Tests 01/07 01/07 01/07 0015 0000 0000 Chemistry Plasma Sodium (136 - 145 mmol/L) 138 Plasma Potassium (3.5 - 5.1 mmol/L) 4.2 Plasma Chloride (98 - 107 mmol/L) 102 CO2 (Enzymatic) (21 - 32 mmol/L) 27 BUN (7 - 18 mg/dL) 16 Creatinine (0.6 - 1.3 mg/dL) 0.9 Est GFR ( Amer) (mL/min) >60 Est GFR (Non-Af Amer) (mL/min) >60 Glucose (70 - 110 mg/dL) 144 Plasma Calcium (8.5 - 10.1 mg/dL) 9.0 Total Bilirubin (0.0 - 1.0 mg/dL) 0.4 AST (15 - 37 U/L) 35 ALT (12 - 78 U/L) 25 Alkaline Phosphatase (46 - 116 U/L) 66 Total Protein (6.4 - 8.2 g/dL) 7.4 Albumin (3.3 - 5.0 g/dL) 3.7 Beta HCG, Quant (mIU/mL) 2091 Hematology WBC (4.5 - 11.5 K/uL) 7.2 RBC (4.00 - 5.20 M/uL) 3.76 Hgb (12.0 - 16.0 gm/dL) 10.0 Hct (36.0 - 46.0 %) 30.2 MCV (80 - 100 fL) 80 MCH (26 - 34 pg) 27 RDW (11.6 - 14.8 %) 18.4 Neut % (Auto) (50 - 75 %) 62.7 Lymph % (Auto) (25 - 40 %) 29.3 Sequoyah % (Auto) (3 - 14 %) 5.6 Eos % (Auto) (0 - 4 %) 1.0 Baso % (Auto) (0 - 2 %) 1.4 Plt Count, EDTA (150 - 400 K/uL) 271 PUBS MCHC (31 - 37 g/dL) 33 Toxicology Urine Opiates Screen (NEGATIVE) NEGATIVE Urine Methadone Screen (NEGATIVE) NEGATIVE Ur Barbiturates Screen (NEGATIVE) NEGATIVE U Amphetamin/Meth Scrn (NEGATIVE) POSITIVE MDMA (Ecstasy) Screen (NEGATIVE) POSITIVE U Benzodiazepines Scrn (NEGATIVE) NEGATIVE Urine Cocaine Screen (NEGATIVE) NEGATIVE U Cannabinoids Screen (NEGATIVE) NEGATIVE Urines Urine Color YELLOW Urine Appearance CLEAR Urine pH (5.0 - 8.0) 6.0 Ur Specific [place] (1.010 - 1.030) >= 1.030 Urine Protein (NEGATIVE) NEGATIVE Urine Ketones (NEGATIVE) NEGATIVE Urine Blood (NEGATIVE) NEGATIVE Urine Nitrite (NEGATIVE) NEGATIVE Urine Bilirubin (NEGATIVE) NEGATIVE Urine Urobilinogen (0.2 - 1.0 EU/dL) 0.2 Ur Leukocyte Esterase (NEGATIVE) NEGATIVE Urine RBC (0 - 1 rbc/hpf) 0-1 Urine WBC (0 - 1 wbc/hpf) 0-1 Ur Epithelial Cells (0 - 5 EPI/hpf) 1-3 Urine Bacteria (NONE SEEN) NONE SEEN Urine Glucose (NEGATIVE) NEGATIVE Urine Test POSITIVE Urine Comment CULT NOT INDICATED Microbiology Date/Time Procedure - Status Source Growth 04/10 0055 Neisseria gonorrhoeae ([place]) - RECD CERVIX 01/07 55 Chlamydia trachomatis ([place]) - RECD CERVIX 01/07 55 Wet Prep - COMP CERVIX Assessment and Plan Problem List 1. Ectopic Plan Ectopic in right adnexal region adjacent to right ovary, with free fluid in the pelvis. Options discussed with patient including Methotrexate (which requires significant follow up) vs surgery. Patient has elected to proceed with surgical managment. OR team called in. Will plan for Diagnostic laparoscopy, possible unilateral salpingectomy, possible unilateral salpingo-oophorectomy. T&S complete, consents signed. OK with blood transfusion if critical.
--- NOTE | 2017-01-07 04:09 | ED MED RECONCILIATION SUMMARY ---
Patient: PENNY RODRIGUEZ Medication Reconciliation Report [facility] VisitID: [id number] [address] [place] [place] [address] 31y, F Registration Date/Time: 01/06/2017 Weight: 62.1 kg Height/Length: 64 in. BMI: 23.5 ALLERGIES: Bactrim The patient's Home Medications are listed below: NONE. The source(s) of the original Home Medication information: patient The following Medications were given to the patient in the Emergency Department: IV NS IV Fluids bolus 0, then 1000 mL/hr, administered: 01/07/2017 1:01:00 AM The following Medications were prescribed to the patient: None.
--- NOTE | 2017-01-07 04:09 | ED DISCHARGE INSTRUCTIONS ---
Patient: PENNY RODRIGUEZ General Instructions [facility] VisitID: [id number] [address] [place] [address] 31y, F Registration Date/Time: 01/06/2017 Right ovarian ectopic .No hypotension or shock. (Electronically signed by Michael Brannon Dr. 01/07/2017 3:43)
--- NOTE | 2017-01-07 04:09 | ED MAR SUMMARY ---
..... Medication Administration Record [facility] [address] [place] [address] Patient: PENNY RODRIGUEZ Visit ID: [id number] 31y, F Weight: 62.1 kg Height/Length: 64 in BMI: 23.5 ALLERGIES: Bactrim Start 01:01 01/07/2017 Saran Chacon RFarhadN., Stop 04:09 01/07/2017 Saran Chacon, RFarhadN. Medication Administered: IV NS (SALINE), Dose: IV Fluids over 1 hour(s), Rate: 1000 mL/hr, Dispensed: 1000 mL bag, Site: #1 right AC. Medication Ordered: IV NS : initial bolus none -, then 1000 mL/hr for X1 (NOW).
--- NOTE | 2017-01-07 04:09 | ED DISCHARGE INSTRUCTIONS ---
Patient: PENNY RODRIGUEZ General Instructions [facility] VisitID: [id number] [address] [place] [address] 31y, F Registration Date/Time: 01/06/2017 Right ovarian ectopic .No hypotension or shock. (Electronically signed by Michael Brannon Dr. 01/07/2017 3:43)
--- NOTE | 2017-01-07 04:09 | ED MED RECONCILIATION SUMMARY ---
Patient: PENNY RODRIGUEZ Medication Reconciliation Report [facility] VisitID: [id number] [address] [place] [address] 31y, F Registration Date/Time: 01/06/2017 Weight: 62.1 kg Height/Length: 64 in. BMI: 23.5 ALLERGIES: Bactrim The patient's Home Medications are listed below: NONE. The source(s) of the original Home Medication information: patient The following Medications were given to the patient in the Emergency Department: IV NS IV Fluids bolus 0, then 1000 mL/hr, administered: 01/07/2017 1:01:00 AM The following Medications were prescribed to the patient: None.
--- NOTE | 2017-01-07 04:09 | ED MAR SUMMARY ---
..... Medication Administration Record [facility] [address] [place] [address] Patient: PENNY RODRIGUEZ Visit ID: [id number] 31y, F Weight: 62.1 kg Height/Length: 64 in BMI: 23.5 ALLERGIES: Bactrim Start 01:01 01/07/2017 Saran Chacon RFarhadN., Stop 04:09 01/07/2017 Saran Chacon, RFarhadN. Medication Administered: IV NS (SALINE), Dose: IV Fluids over 1 hour(s), Rate: 1000 mL/hr, Dispensed: 1000 mL bag, Site: #1 right AC. Medication Ordered: IV NS : initial bolus none -, then 1000 mL/hr for X1 (NOW).
--- NOTE | 2017-01-07 06:12 | Provider's Discharge Care Plan ---
Problem, Goal, Plan Problem List 1. Ectopic Goals: Improved health/wellness, No readmissions Instructions: Follow up as directed, Take meds as directed, Stop smoking, No illicit drugs
--- NOTE | 2017-01-07 06:12 | Provider's Discharge Care Plan ---
Problem, Goal, Plan Problem List 1. Ectopic Goals: Improved health/wellness, No readmissions Instructions: Follow up as directed, Take meds as directed, Stop smoking, No illicit drugs
[2017-01-07] MEDS ORDERED: IBUPROFEN600 MG PO (06:13)
[2017-01-07] MEDS ORDERED: NORCO1 TA1 PO (06:13)
--- NOTE | 2017-01-07 06:16 | Operative Report ---
Operative Report Date of Surgery: 01/07/2017 Preoperate Diagnosis: Ectopic Postoperative Diagnosis: Ectopic Surgeon: Lilian Rayo MD Procedure Performed: Diagnostic laparoscopy, Right salpingo-oophorectomy Anesthesia: General endotracheal Indications: 31 yo with right lower quadrant pain and ectopic in right adnexa adjacent to ovary, with free fluid in the pelvis Surgical Technique: The patient was taken to the operating room where she was placed under general anesthesia without difficulty. She was then placed in the dorsal lithotomy position, and her vagina and abdomen were prepped and draped in a normal sterile fashion. A straight in and out catheter was used to empty her bladder. A sponge stick was placed in the vagina. A timeout was performed. A 10 mm infraumbilical skin incision was made with the knife and then a Veress needle was used to enter the abdominal cavity. Insufflation of the abdominal cavity up to 15 mmHg was performed. A 10 mm trocar was placed into the abdominal cavity under visualization with the laparoscopic camera. Two additional 5 mm trochars were placed in bilateral lower quadrants under direct visualization. The pelvis was then examined and the findings were as noted. Suction was used to clear the pelvis of blood and clot. The right adnexal regional was examined and the fallopian tube appeared to have an ectopic around the region of the ampulla. The Thunderbeat cauterization system was used to ligate and excise the right fallopian tube through the mesosalpinx up to the cornua of the uterus. The tube was then removed through the 10 mm trocar. Examination of the right ovary revealed a large clot which was removed with suction. The ovary itself also had an area suspicious for cyst versus ectopic. Decision was made to remove the right ovary as well. The Thunderbeat was then used to cauterize and cut the IP ligament and the utero-ovarian ligament. An Endocatch bag was then used to bring the ovary up through the 10 mm skin incision. The pelvis was then irrigated and cleared of all blood and clots. The areas of excision were noted to be hemostatic. CO2 gas was removed from the abdomen followed by the trochars. A Mary clamp was used to grasp the fascia at the 10 mm incision and this was closed with 0 Polysorb in a running fashion. All skin incisions were closed with 4-0 Polysorb in a subcuticular fashion. Steri-Strips were then placed over the incisions. All sponge lap and needle counts were correct x two. Specimens included right fallopian tube and right ovary. The patient was taken to the PACU in stable condition. Findings 1. Normal uterus 2. Scar tissue of left fallopian tube and ovary consistent with history of PID 3. Ectopic in right fallopian tube 4. Enlarged and abnormal appearing right ovary
[2017-01-07 07:01] VITALS: BP 108/66
[2017-01-07 07:31] VITALS: BP 128/85
--- NOTE | 2017-01-07 08:53 | DIAGNOSTIC IMAGING REPORT ---
PROCEDURE: US OB 1ST TRIMESTER W/TRANSVAG INDICATION: Right lower quadrant pain. Beta hCG greater than 2000. TECHNIQUE: Campo scale, color, and spectral Doppler transabdominal and endovaginal sonographic images of the first trimester gravid uterus were obtained. COMPARISON: None. FINDINGS: TRANSABDOMINAL SCANS: Mild free fluid around the right adnexa. TRANSVAGINAL SCANS: The uterus is unremarkable. Endometrium measures 1.4 cm without evidence of an intrauterine gestational sac. There is a 2.6 x 2.1 x 1.6 cm mass adjacent to the right ovary with mild free fluid. IMPRESSION: 1. Empty uterus with Beta hCG over 2000, right adnexal mass with mild adjacent free fluid consistent with an ectopic .
== END 2017-01-07 09:30 | disposition home or self-care (01) ==
LOC: ED SRH 23:45 → TRANS SRH 01-07 03:23 → ED SRH 01-07 03:23 → TRANS SRH 01-07 03:23 → ED SRH 01-07 04:09 → SDC SRH 01-07 05:50 → ACUTE2 SRH 01-07 06:40 → SDC SRH 01-07 09:30
PROVIDERS: Obstetrics & Gynecology
PROC: 10T24ZZ Resection of Products of Conception, Ectopic, Percutaneous Endoscopic Approach (ICD-10-PCS; principal; 2017-01-07 04:30)
PROC: 0UT54ZZ Resection of Right Fallopian Tube, Percutaneous Endoscopic Approach (ICD-10-PCS; principal; 2017-01-07 04:30)
PROC: 0UT04ZZ Resection of Right Ovary, Percutaneous Endoscopic Approach (ICD-10-PCS; principal; 2017-01-07 04:30)
DX: O00.10 Tubal pregnancy without intrauterine pregnancy (principal); N83.01 Follicular cyst of right ovary; K66.1 Hemoperitoneum; F15.10 Other stimulant abuse, uncomplicated; Z72.0 Tobacco use

== ENCOUNTER 2017-01-08 14:35 | Emergency (ER) | payer OTHER ==
[~2017-01-08 14:35] MED LIST: IBUPROFEN600 MG PO; NORCO1 TA1 PO
--- NOTE | 2017-01-08 15:48 | DIAGNOSTIC IMAGING REPORT ---
PROCEDURE: CT ABD/PELVIS WITH CONTRAST CLINICAL INDICATION: Abdominal pain, 2 days status post ectopic and salpingectomy. Initial encounter. TECHNIQUE: 100 ml of Isovue 300 were injected intravenously and axial images were obtained of the entire abdomen and pelvis with sagittal and coronal reformations. COMPARISON: None. FINDINGS: ABDOMEN: Stool throughout the large bowel. Mildly fluid-filled distention of the mid small bowel. Normal caliber of the proximal and distal small bowel. Small fluid and air collection of the umbilicus consistent with recent postsurgical changes. Lung base are clear. Heart size is normal. Liver, gallbladder, pancreas, spleen, adrenal glands and the kidneys are unremarkable. Normal abdominal aorta. Moderate distention of the stomach with gastric contents. PELVIS: Normal appendix. Mildly enlarged uterus consistent with status. Left adnexa and bladder are unremarkable. Small amount of free fluid. Bones are unremarkable. IMPRESSION: 1. Mildly fluid-filled distention of the mid small bowel which may represent a focal ileus versus developing closed loop partial small bowel obstruction. 2. Moderate gastric distention with gastric contents 3. Obstipation 4. Small amount of free fluid the pelvis consistent with postsurgical changes 5. Results discussed with Marleny Colin All CT scans at this facility use dose modulation, iterative reconstruction, and/or weight-based dosing when appropriate to reduce radiation dose to as low as reasonably achievable.
--- NOTE | 2017-01-08 16:11 | ED ORDER SUMMARY ---
..... Patient: PENNY RODRIGUEZ [facility]Sheet [facility] VisitID: [id number] [place] [address] 31y, F Registration Date/Time: 01/08/2017 ORDER SHEET Weight: 62.1 kg (stated) Allergies: None GENERAL ORDERS: CT Abd/Pel w Cont (No) (pending) Urgent (14:52 01/08/2017 HBivens A.R.N.P.) (Ack 14:55 KHoerner) (15:47 KWilliams R.N.) CBC w Diff Urgent (14:53 01/08/2017 HBivens A.R.N.P.) (Ack 14:55 KHoerner) (14:56 KKnebel R.N.) CMP Urgent (14:53 01/08/2017 HBivens A.R.N.P.) (Ack 14:55 KHoerner) (14:56 KKnebel R.N.) UA-Culture if indicated Urgent (14:53 01/08/2017 HBivens A.R.N.P.) (Ack 14:55 KHoerner) (17:31 KKnebel R.N.) Pelvic Exam Setup (14:57 01/08/2017 HBivens A.R.N.P.) (17:43 KKnebel R.N.) NG Tube (17:19 01/08/2017 JBoardley R.N. verbal order read back to HBivens A.R.N.P.) (17:19 JBoardley R.N.) Urine Drug Screen Urgent (17:56 01/08/2017 HBivens A.R.N.P.) (17:56 KKnebel R.N.) MEDICATION ORDERS: IV FLUIDS: IV Saline Lock (14:53 01/08/2017 HBivens A.R.N.P.) (15:47 KWilliams R.N.) Zofran IV 4 mg (NOW) (18:39 01/08/2017 HBivens A.R.N.P.) (19:04 KWilliams R.N.) Toradol IV 30 mg (NOW) (18:39 01/08/2017 Sandra A.R.N.P.) (19:04 Marty Renee.Jairon) ORDER SHEET NOTES: [Electronically signed by Marleny ColinRFarhadN.PFarhad (20:23 01/08/2017)] [Electronically signed by Mai Calvert R.N. (23:12 01/08/2017)] [Electronically locked/signed by Mai Calvert R.N. (23:12 01/08/2017)]
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
--- NOTE | 2017-01-08 16:11 | ED ORDER SUMMARY ---
..... Patient: PENNY RODRIGUEZ OrderSheet [facility] VisitID: [id number] [place] [address] 31y, F Registration Date/Time: 01/08/2017 ORDER SHEET Weight: 62.1 kg (stated) Allergies: None GENERAL ORDERS: CT Abd/Pel w Cont (No) (pending) Urgent (14:52 01/08/2017 HBivens A.R.N.P.) (Ack 14:55 KHoerner) (15:47 KWilliams R.N.) CBC w Diff Urgent (14:53 01/08/2017 HBivens A.R.N.P.) (Ack 14:55 KHoerner) (14:56 KKnebel R.N.) CMP Urgent (14:53 01/08/2017 HBivens A.R.N.P.) (Ack 14:55 KHoerner) (14:56 KKnebel R.N.) UA-Culture if indicated Urgent (14:53 01/08/2017 HBivens A.R.N.P.) (Ack 14:55 KHoerner) (17:31 KKnebel R.N.) Pelvic Exam Setup (14:57 01/08/2017 HBivens A.R.N.P.) (17:43 KKnebel R.N.) NG Tube (17:19 01/08/2017 JBoardley R.N. verbal order read back to HBivens A.R.N.P.) (17:19 JBoardley R.N.) Urine Drug Screen Urgent (17:56 01/08/2017 HBivens A.R.N.P.) (17:56 KKnebel R.N.) MEDICATION ORDERS: IV FLUIDS: IV Saline Lock (14:53 01/08/2017 HBivens A.R.N.P.) (15:47 KWilliams R.N.) Zofran IV 4 mg (NOW) (18:39 01/08/2017 HBivens A.R.N.P.) (19:04 KWilliams R.N.) Toradol IV 30 mg (NOW) (18:39 01/08/2017 Sandra A.R.N.P.) (19:04 Marty Renee.Jairon) ORDER SHEET NOTES: [Electronically signed by Marleny ColinRFarhadN.PFarhad (20:23 01/08/2017)] [Electronically signed by Mai Calvert R.N. (23:12 01/08/2017)] [Electronically locked/signed by Mai Calvert R.N. (23:12 01/08/2017)]
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
--- NOTE | 2017-01-08 23:12 | ED MAR SUMMARY ---
..... Medication Administration Record [facility] [address] [place] [address] Patient: PENNY RODRIGUEZ Visit ID: [id number] 31y, F Weight: 62.1 kg Height/Length: 64 in BMI: 23.5 ALLERGIES: None Given 18:59 01/08/2017 Julianna Reeves R.N. Medication Administered: ZOFRAN [IVP] (ONDANSETRON HCL), Dose: 4 mg IVP over 2 minute(s), Site: #2 left AC. Medication Ordered: Zofran IV 4 mg (NOW). Given 19:01 01/08/2017 Julianna Reeves R.N. Medication Administered: TORADOL [IVP], Dose: 30 mg IVP over 2 minute(s), Site: #2 left AC. Medication Ordered: Toradol IV 30 mg (NOW).
--- NOTE | 2017-01-08 23:12 | ED MAR SUMMARY ---
..... Medication Administration Record [facility] [address] [place] [address] Patient: PENNY RODRIGUEZ Visit ID: [id number] 31y, F Weight: 62.1 kg Height/Length: 64 in BMI: 23.5 ALLERGIES: None Given 18:59 01/08/2017 Julianna Reeves R.N. Medication Administered: ZOFRAN [IVP] (ONDANSETRON HCL), Dose: 4 mg IVP over 2 minute(s), Site: #2 left AC. Medication Ordered: Zofran IV 4 mg (NOW). Given 19:01 01/08/2017 Julianna Reeves R.N. Medication Administered: TORADOL [IVP], Dose: 30 mg IVP over 2 minute(s), Site: #2 left AC. Medication Ordered: Toradol IV 30 mg (NOW).
--- NOTE | 2017-01-08 23:12 | ED DISCHARGE INSTRUCTIONS ---
Patient: PENNY RODRIGUEZ General Instructions [facility] VisitID: [id number] [address] [place] [address] 31y, F Registration Date/Time: 01/08/2017 Acute generalized abdominal pain. Chronic substance abuse- benzodiazepines, methamphetamines with anxiety. Paralytic ileus. (Obstipation). (Electronically signed by Marleny Colin A.R.N.P. 01/08/2017 20:23)
--- NOTE | 2017-01-08 23:12 | ED MED RECONCILIATION SUMMARY ---
Patient: PENNY RODRIGUEZ Medication Reconciliation Report [facility] VisitID: [id number] [address] [place] [place] [address] 31y, F Registration Date/Time: 01/08/2017 Weight: 62.1 kg Height/Length: 64 in. BMI: 23.5 ALLERGIES: None The patient's Home Medications are listed below: THE FOLLOWING MEDICATIONS NEED TO BE RECONCILED: Percocet Oral The source(s) of the original Home Medication information: Not obtained. The following Medications were given to the patient in the Emergency Department: Zofran [IVP] IVP 4 mg, administered: 01/08/2017 6:59:00 PM Toradol [IVP] IVP 30 mg, administered: 01/08/2017 7:01:00 PM The following Medications were prescribed to the patient: None.
--- NOTE | 2017-01-08 23:12 | ED DISCHARGE INSTRUCTIONS ---
Patient: PENNY RODRIGUEZ General Instructions [facility] VisitID: [id number] [address] [place] [address] 31y, F Registration Date/Time: 01/08/2017 Acute generalized abdominal pain. Chronic substance abuse- benzodiazepines, methamphetamines with anxiety. Paralytic ileus. (Obstipation). (Electronically signed by Marleny Colin A.R.N.P. 01/08/2017 20:23)
--- NOTE | 2017-01-08 23:12 | ED MED RECONCILIATION SUMMARY ---
Patient: PENNY RODRIGUEZ Medication Reconciliation Report [facility] VisitID: [id number] [address] [place] [address] 31y, F Registration Date/Time: 01/08/2017 Weight: 62.1 kg Height/Length: 64 in. BMI: 23.5 ALLERGIES: None The patient's Home Medications are listed below: THE FOLLOWING MEDICATIONS NEED TO BE RECONCILED: Percocet Oral The source(s) of the original Home Medication information: Not obtained. The following Medications were given to the patient in the Emergency Department: Zofran [IVP] IVP 4 mg, administered: 01/08/2017 6:59:00 PM Toradol [IVP] IVP 30 mg, administered: 01/08/2017 7:01:00 PM The following Medications were prescribed to the patient: None.
== END 2017-01-08 20:00 | disposition still patient (30) ==
LOC: ED SRH 14:35
DX: K56.0 Paralytic ileus (principal); K59.00 Constipation, unspecified; R10.84 Generalized abdominal pain; F15.180 Other stimulant abuse with stimulant-induced anxiety disorder; K31.89 Other diseases of stomach and duodenum
CPT/HCPCS: 90004; 90100; 92760; 92761; 92762; 92763; 92764; 92765; 92766; 92767; 95059

== ENCOUNTER 2017-01-08 16:29 | Observation (INO) | payer OTHER ==
[~2017-01-08] VITALS: Ht 162.6 cm; Wt 61.9 kg
[2017-01-08 20:27] VITALS: BP 119/81
--- NOTE | 2017-01-08 21:59 | HISTORY AND PHYSICAL ---
ADMITTED: 01/08/2017 INTERIM NOTE CHIEF COMPLAINT: 1. Nausea and vomiting diagnosed as a potential small-bowel obstruction by the emergency department visit HISTORY OF PRESENT ILLNESS: See previous history and physical from 3 days ago when patient had a multiple puncture laparoscopy with ectopic pregnancies surgery with Dr. Rayo. Recent update: The patient was discharged home with pain medications. She now returns with nausea and vomiting. The patient is positive for benzodiazepines and methamphetamines. Now patient is being readmitted and has an NG tube placed. She has been having nausea and vomiting. IMPRESSION/PLAN: CAT scan has been performed. Results are consistent with a small-bowel obstruction.Dr. Grady and/or Merlene have been consulted for evaluation of the patient in the a.m.
[2017-01-08 22:53] VITALS: BP 110/58
[2017-01-09 02:21] VITALS: BP 113/70
--- NOTE | 2017-01-09 06:10 | NUR ---
PT CAME TO FLOOR AT 2020, ORIENTED TO ROOM AND SETTLED INTO BED. PT COMPLIANT WITH CARE BUT DID REPEATEDLY ASK TO HAVE THE NG TUBE REMOVED. PT STATED "MY STOMACH IS RUMBLING A LOT. I AM PASSING A LOT OF GAS." PT EDUCATED ON NEED TO KEEP NG TUBE IN UNTIL DR ORDERS IT REMOVED. PT ANXIOUS, TEARY, HAD MANY QUESTIONS ABOUT CARE THAT WAS HAPPENING, BUT WAS ABLE TO CALM DOWN WITH SPECIFIC EXPLANATION AND EDUCATION FOR ALL NURSING CARE. PT DENIED N/V AND ABD PAIN. LATE IN THE SHIFT, PT CALLED AND DECLARED ADAMANTLY "THAT THING THAT'S IN THERE IS GOING TO POP AND MY POOP BAG IS GOING TO EXPLODE." PT EDUCATED ON WHAT ILEUS IS, BUT PT REPEATED "WELL, I DON'T KNOW ABOUT THAT, BUT MY POOP BAG IS GOING TO POP". PT HAD ABD XRAY IN AM, WAITING FOR RESULTS. UP TO BATHROOM WITH ONE ASSIST TO DISCONNECT FROM NG AND SCDs. VSS ON ROOM AIR, O2 SATS AT 98%.
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
[2017-01-09 07:26] VITALS: BP 121/72
--- NOTE | 2017-01-09 07:56 | DIAGNOSTIC IMAGING REPORT ---
PROCEDURE: XR ABDOMEN 1 VIEW INDICATION: SBO TECHNIQUE: AP upright view. COMPARISON: CT abdomen/pelvis 01/08/2017 FINDINGS: Moderate residual stool. No evidence of bowel obstruction, free air or suspicious calcification. Bones are unremarkable. IMPRESSION: 1. Moderate stool
--- NOTE | 2017-01-09 10:02 | NUR ---
PATIENT DENIES PAIN THIS AM. NGTUBE IN PLACE TO LIS. WENT DOWN FOR SBFT AND AFTER PATIENT RETURNED DR. HULL CALLED AND GAVE ORDERS TO PULL NG TUBE AND OK TO START CLEAR LIQUIDS WHEN PATIENT HAS BM. NG TUBE DC'D W/O PROBLEMS. SEE SHIFT ASSESSMENT FOR FURTHER DETAILS.
--- NOTE | 2017-01-09 10:04 | DIAGNOSTIC IMAGING REPORT ---
PROCEDURE: XR SBFT WITH GASTROGRAFIN INDICATION: post op ileus TECHNIQUE: 240 ml of gastrographin via NG tube. COMPARISON: CT abdomen/pelvis 01/08/2017. FINDINGS: Moderate stool. Immediate and 30-minute KUBs were obtained. Small bowel has a normal caliber and mucosal pattern with resolved postop ileus. Transit time is 30 minutes normal. IMPRESSION: 1. Resolved postop ileus. 2. Results discussed with Dr. Blunt
[2017-01-09 10:38] VITALS: BP 132/81
--- NOTE | 2017-01-09 14:10 | NUR ---
WHILE RELIEVING FOR LUNCH I WENT INTO THE ROOM TO ATTEND A BEEPING IV PUMP AND THOUGHT I COULD SMELL CIGARETTE SMOKE, THEN I OPENED THE BATHROOM DOOR AND IT WAS VERY STRONG OF CIGARETTE SMOKE. I ASKED THE RESP THERAPIST TO CONFIRM MY THOUGHTS AND HE AGREED. I ASKED THE PT IF SHE HAD BEEN SMOKING AND SHE DENIED IT. AFTER THE CONFIRMATION I ASKED HER AGAIN AND SHE FINALLY ADMITTED IT. I TOLD HER SHE WAS NOT ALLOWED TO SMOKE AND BECAUSE OF THIS SHE WOULD NEED TO KEEP THE DOOR OPEN AND HAVE SOMEONE GO TO THE BATHROOM WITH HER. WE WERE ABLE TO CONVINCE HER TO GIVE THE CIGARETTES AND WHIPPED TOPPING FINISHER TO US AND THEY ARE MARKED AND PLACED IN HER CHART.
[2017-01-09 14:50] VITALS: BP 115/64
--- NOTE | 2017-01-09 15:58 | Provider's Discharge Care Plan ---
Problem, Goal, Plan Problem List 1. Postoperative state 2. Encounter for assessment for small bowel obstruciton Goals: Improve disease control Instructions: Follow up as needed
--- NOTE | 2017-01-09 15:58 | Provider's Discharge Care Plan ---
Problem, Goal, Plan Problem List 1. Postoperative state 2. Encounter for assessment for small bowel obstruciton Goals: Improve disease control Instructions: Follow up as needed
--- NOTE | 2017-01-09 16:29 | DISCHARGE SUMMARY ---
ADMIT DATE: 01/08/2017 DISCHARGE DATE: 01/09/2017 ADMITTING DIAGNOSES: 1. Postoperative state, ectopic 2. Readmission for evaluation of small-bowel obstruction DISCHARGE DIAGNOSES: 1. Postoperative state, ectopic 2. Readmission for evaluation of small-bowel obstruction CONSULTING PHYSICIAN: Dr. Blunt for small-bowel obstruction management. HOSPITAL COURSE: See admission progress note, history and physical as a continuation of the one done last week for the ectopic . The patient was seen in the ED last evening with nausea and vomiting, also positive screen for benzodiazepines with amphetamines. The patient had an nasogastric tube placed. She was kept n.p.o. overnight. The patient had laboratories and procedures ordered by Dr. Blunt; see consult. Small bowel follow through was performed, and the patient had a small bowel movement, to rule out obstruction. She was then released by Dr. Blunt and is being discharged home. DISCHARGE INSTRUCTIONS/MEDICATIONS: The patient was to continue with her previous observation medications from her discharge from multiple-puncture laparoscopic ectopic management. The patient to continue her routine followup with myself or Dr. Rayo this week. Warnings and precautions given to the patient. No additional medications given.
--- NOTE | 2017-01-09 16:56 | NUR ---
PATIENT HAD MULTIPLE LOOSE STOOLS AND TOLERATING CLEAR LIQUIDS W/O PROBLEMS.DC'D IV TO LAC, HEMOSTASIS ACHIEVED, SECURED WITH GAUZE AND TAPE. DC INSTRUCTIONS GIVE AND F/U APPT MADE. PATIENT TRANSPORTED TO HOME BY FAMILY AND ESCORTED OUT OF FACILITY BY CREATIVE WRITING TEACHER.
== END 2017-01-09 17:00 | disposition home or self-care (01) ==
LOC: ED SRH 16:29 → TRANS SRH 18:15 → ACUTE2 SRH 18:15
PROVIDERS: ADMIT Obstetrics & Gynecology
DX: K91.3 Postprocedural intestinal obstruction (principal); R11.2 Nausea with vomiting, unspecified; F15.10 Other stimulant abuse, uncomplicated
CPT/HCPCS: 29230; 81460; 90047; 90074; 92132; 95059

== ENCOUNTER 2017-01-15 02:11 | Emergency (ER) | payer OTHER ==
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
--- NOTE | 2017-01-15 05:29 | ED NURSING NOTES ---
Clinical Report - Nurses [facility] [address] [place] [address] 01/15/2017 2:12 Patient: PENNY RODRIGUEZ TRIAGE Triage time 02:21. Acuity: LEVEL 3. Chief Complaint: ABDOMINAL PAIN. 02:34. Alert. SEPSIS SCREEN: Sepsis Screen. Negative (no infection suspected/documented). --02:34 Albert Solano R.N. 02:21 01/15/17. BP: 122/80. HR: 91. RR: 16. O2 saturation: 99%. Temp: 98.3 F. Pain level now: 12/07. --02:34 Albert Solano R.N. Weight: 62.1 kg stated. Height/Length: 64 inches Per Patient. BMI: 23.5. --02:33 Albert Solano R.N. Medications Percocet Oral. --02:30 Albert Solano R.N. Medication/allergy information source: the patient. --02:34 Albert Solano R.N. Allergies Bactrim. --02:30 Albert Solano R.N. History Arrived by private vehicle. Historian: patient. Unaccompanied. Primary physician (Josué). ( Patient reports having a fallopian tube removed following an ectopic on 01/12 , is now having increasing ABD and back pain, ABD swelling and bleeding from the right side incision site. Also reports that she may be again). 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 PAST MEDICAL HX: Immunizations: up-to-date. Last normal menstrual period- December 20. SOCIAL HX: Current every day heavy tobacco smoker- less than 1 pack per day. Occasional alcohol use. History of drug use: marijuana. (daily). No infectious disease exposure. ABUSE ASSESSMENT: No report of abuse. FALL RISK ASSESSMENT: Fall risk assessment completed. No fall risk identified. NUTRITIONAL RISK ASSESSMENT: The nutritional risk assessment revealed no deficiencies. FUNCTIONAL ASSESSMENT: Functional assessment: no impairments noted. LEARNING NEEDS ASSESSMENT: The learning needs assessment revealed no barriers. SKIN INTEGRITY ASSESSMENT: Skin integrity risk assessment completed. No skin integrity risk identified. --02:34 Albert Solano R.N. PROBLEMS: Ectopic . Adjustment Disorder. Intrauterine . Bronchitis. OB History. Spontaneous (Miscarriage). Constipation. Lifestyle / Substance Problems. STD - Sexually Transmitted Disease. UTI - Urinary Tract Infection. MRSA Infection. --02:31 Albert Solano R.N. Pelvic Inflammatory Disease [RuleOut]. --04:46 Bubba Dyson MD The following entry was modified by Bubba Dyson MD, 04:46 <<STRICKEN ENTRY-- Pelvic Inflammatory Disease. --03:33 Albert Solano R.N. --END STRIKE>>. ADDITIONAL SURGERIES: Right leg. Tonsillectomy & Adenoidectomy. Tubal . --02:31 Albert Solano R.N. Interventions ID band on patient. To treatment room. --02:34 Albert Solano R.N. PHYSICAL ASSESSMENT 02:34. Ambulatory to room. Patient gowned. GENERAL / NEURO / PSYCH: Alert. Oriented X 4. HEENT: No facial asymmetry noted. Mucous membranes are pink. RESPIRATORY: Respirations not labored. SKIN: Skin is warm and dry. Normal skin turgor. ( 3 healing incision sites). --02:35 Albert Solano R.N. NURSING PROGRESS NOTES 02:27. Patient ID band checked for patient name and birthdate: patient confirmed. Clean catch urine collected with return of yellow-colored clear urine; sample sent to lab for urinalysis and HCG. Specimen labeled in the presence of the patient. --02:27 Albert Solano R.N. 02:36. Head of bed elevated. Two patient identifiers checked. Call light placed in reach. Bed placed in lowest position. Brakes of bed on. Patient ready for evaluation- chart flagged. --02:36 Albert Solano R.N. 02:49 01/15/2017 Site #1 started via IV in the right forearm with an 20g angiocath, with aseptic technique and good blood return; one attempt. Blood drawn: rainbow set. Labeled in the presence of the patient and sent to the lab. Saline lock flushed with 10 mL saline. --02:49 Nargis Roman R.N. 02:52 01/15/2017 Started bag #1 1000 mL IV Fluids IV NS (Saline); at 1000 mL/hr over 30 minute(s) via site #1 via IV pump. --02:55 lAbert Solano R.N. 03:25 01/15/2017 IV Fluids IV NS via IV site #1 Rate Changed: bag #1 decreased to 125 mL/hr. --03:40 Albert Solano R.N. 03:41 residential appliance repair technician with pt for exam. --03:42 Albert Solano R.N. 04:58 01/15/2017 Zithromax PO 1000 mg given. Allergies verified and confirmed 5 rights. --05:03 Albert Solano R.N. 05:00 01/15/2017 IV Fluids IV NS Discontinued: bag #1 STOPPED upon discharge. Total amount infused: 700 mL. IV patency established. IV site checked: no pain, redness, or swelling. IV flushed thoroughly. --05:03 Albert Solano R.N. 05:00. Patient ID band checked for patient name and birthdate: patient confirmed. Blood samples drawn from the right forearm peripheral IV site with syringe; labeled in presence of the patient and sent to lab: yellow top. Initial blood discarded and additional blood sent to lab. Line flushed with 10 mL normal saline post blood draw. --05:06 Albert Solano R.N. 05:04 01/15/2017 Ceftriaxone IM 250 mg given. Given in the right gluteus lia. Allergies verified and confirmed 5 rights. --05:27 Albert Solano R.N. 05:22. The patient is calm and resting quietly. RESPIRATORY: No respiratory distress. SKIN: Skin is warm and dry. Skin color within normal limits. --05:28 Albert Solano R.N. DISPOSITION / DISCHARGE 05:05 01/15/2017 Site #1 removed upon discharge. Catheter intact. Bandage applied. --05:07 Albert Solano R.N. Departure time: 05:26. Condition at departure: stable. No learning barriers present. Discharge instructions provided and reviewed with the patient. Patient verbalized understanding. Written instructions provided in Chinese. The patient was discharged home and unaccompanied at time of discharge. She left the Emergency Department ambulatory and via private vehicle. Patient driving. FALL RISK ASSESSMENT: Fall risk assessment completed. No fall risk identified. --05:26 Albert Solano R.N. 05:03 01/15/17. BP: 125/82. HR: 77. RR: 16. O2 saturation: 100% on room air. Temp: 97.9 F (oral). Pain level now: 11/09. --05:26 Albert Solano R.N. Locked/Released at 01/15/2017 5:29 by Albert Solano R.N.
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
--- NOTE | 2017-01-15 05:29 | ED NURSING NOTES ---
Clinical Report - Nurses [facility] [address] [place] [address] 01/15/2017 2:12 Patient: PENNY RODRIGUEZ TRIAGE Triage time 02:21. Acuity: LEVEL 3. Chief Complaint: ABDOMINAL PAIN. 02:34. Alert. SEPSIS SCREEN: Sepsis Screen. Negative (no infection suspected/documented). --02:34 Albert Solano R.N. 02:21 01/15/17. BP: 122/80. HR: 91. RR: 16. O2 saturation: 99%. Temp: 98.3 F. Pain level now: 12/07. --02:34 Albert Solano R.N. Weight: 62.1 kg stated. Height/Length: 64 inches Per Patient. BMI: 23.5. --02:33 Albert Solano R.N. Medications Percocet Oral. --02:30 Albert Solano R.N. Medication/allergy information source: the patient. --02:34 Albert Solano R.N. Allergies Bactrim. --02:30 Albert Solano R.N. History Arrived by private vehicle. Historian: patient. Unaccompanied. Primary physician (Josué). ( Patient reports having a fallopian tube removed following an ectopic on 01/12 , is now having increasing ABD and back pain, ABD swelling and bleeding from the right side incision site. Also reports that she may be again). 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 PAST MEDICAL HX: Immunizations: up-to-date. Last normal menstrual period- December 20. SOCIAL HX: Current every day heavy tobacco smoker- less than 1 pack per day. Occasional alcohol use. History of drug use: marijuana. (daily). No infectious disease exposure. ABUSE ASSESSMENT: No report of abuse. FALL RISK ASSESSMENT: Fall risk assessment completed. No fall risk identified. NUTRITIONAL RISK ASSESSMENT: The nutritional risk assessment revealed no deficiencies. FUNCTIONAL ASSESSMENT: Functional assessment: no impairments noted. LEARNING NEEDS ASSESSMENT: The learning needs assessment revealed no barriers. SKIN INTEGRITY ASSESSMENT: Skin integrity risk assessment completed. No skin integrity risk identified. --02:34 Albert Solano R.N. PROBLEMS: Ectopic . Adjustment Disorder. Intrauterine . Bronchitis. OB History. Spontaneous (Miscarriage). Constipation. Lifestyle / Substance Problems. STD - Sexually Transmitted Disease. UTI - Urinary Tract Infection. MRSA Infection. --02:31 Albert Solano R.N. Pelvic Inflammatory Disease [RuleOut]. --04:46 Bubba Dyson MD The following entry was modified by Bubba Dyson MD, 04:46 <<STRICKEN ENTRY-- Pelvic Inflammatory Disease. --03:33 Albert Solano R.N. --END STRIKE>>. ADDITIONAL SURGERIES: Right leg. Tonsillectomy & Adenoidectomy. Tubal . --02:31 Albert Solano R.N. Interventions ID band on patient. To treatment room. --02:34 Albert Solano R.N. PHYSICAL ASSESSMENT 02:34. Ambulatory to room. Patient gowned. GENERAL / NEURO / PSYCH: Alert. Oriented X 4. HEENT: No facial asymmetry noted. Mucous membranes are pink. RESPIRATORY: Respirations not labored. SKIN: Skin is warm and dry. Normal skin turgor. ( 3 healing incision sites). --02:35 Albert Solano R.N. NURSING PROGRESS NOTES 02:27. Patient ID band checked for patient name and birthdate: patient confirmed. Clean catch urine collected with return of yellow-colored clear urine; sample sent to lab for urinalysis and HCG. Specimen labeled in the presence of the patient. --02:27 Albert Solano R.N. 02:36. Head of bed elevated. Two patient identifiers checked. Call light placed in reach. Bed placed in lowest position. Brakes of bed on. Patient ready for evaluation- chart flagged. --02:36 Albert Solano R.N. 02:49 01/15/2017 Site #1 started via IV in the right forearm with an 20g angiocath, with aseptic technique and good blood return; one attempt. Blood drawn: rainbow set. Labeled in the presence of the patient and sent to the lab. Saline lock flushed with 10 mL saline. --02:49 Nargis Roman R.N. 02:52 01/15/2017 Started bag #1 1000 mL IV Fluids IV NS (Saline); at 1000 mL/hr over 30 minute(s) via site #1 via IV pump. --02:55 Albert Solano R.N. 03:25 01/15/2017 IV Fluids IV NS via IV site #1 Rate Changed: bag #1 decreased to 125 mL/hr. --03:40 Albert Solano R.N. 03:41 nuclear reactor technician with pt for exam. --03:42 Albert Solano R.N. 04:58 01/15/2017 Zithromax PO 1000 mg given. Allergies verified and confirmed 5 rights. --05:03 Albert Solano R.N. 05:00 01/15/2017 IV Fluids IV NS Discontinued: bag #1 STOPPED upon discharge. Total amount infused: 700 mL. IV patency established. IV site checked: no pain, redness, or swelling. IV flushed thoroughly. --05:03 Albert Solano R.N. 05:00. Patient ID band checked for patient name and birthdate: patient confirmed. Blood samples drawn from the right forearm peripheral IV site with syringe; labeled in presence of the patient and sent to lab: yellow top. Initial blood discarded and additional blood sent to lab. Line flushed with 10 mL normal saline post blood draw. --05:06 Albert Solano R.N. 05:04 01/15/2017 Ceftriaxone IM 250 mg given. Given in the right gluteus lia. Allergies verified and confirmed 5 rights. --05:27 Albert Solano R.N. 05:22. The patient is calm and resting quietly. RESPIRATORY: No respiratory distress. SKIN: Skin is warm and dry. Skin color within normal limits. --05:28 Albert Solano R.N. DISPOSITION / DISCHARGE 05:05 01/15/2017 Site #1 removed upon discharge. Catheter intact. Bandage applied. --05:07 Albert Solano R.N. Departure time: 05:26. Condition at departure: stable. No learning barriers present. Discharge instructions provided and reviewed with the patient. Patient verbalized understanding. Written instructions provided in Mongolian. The patient was discharged home and unaccompanied at time of discharge. She left the Emergency Department ambulatory and via private vehicle. Patient driving. FALL RISK ASSESSMENT: Fall risk assessment completed. No fall risk identified. --05:26 Albert Solano R.N. 05:03 01/15/17. BP: 125/82. HR: 77. RR: 16. O2 saturation: 100% on room air. Temp: 97.9 F (oral). Pain level now: 11/09. --05:26 Albert Solano R.N. Locked/Released at 01/15/2017 5:29 by Albert Solano R.N.
--- NOTE | 2017-01-15 05:30 | ED ORDER SUMMARY ---
..... Patient: PENNY RODRIGUEZ OrderSheet [facility] VisitID: [id number] [place] [address] 31y, F Registration Date/Time: 01/15/2017 ORDER SHEET Weight: 62.1 kg (stated) Allergies: Bactrim GENERAL ORDERS: CBC w Diff Urgent (02:28 01/15/2017 José Miguel CONTRERAS) (Ack 2:34 LMuller) (2:56 JQuivey R.N.) CMP Urgent (02:01/15/2017 José Miguel CONTRERAS) (Ack 2:34 LMuller) (2:56 JQuivey R.N.) UA-Culture if indicated Urgent (02:01/15/2017 José Miguel CONTRERAS) (Ack 2:34 LMuller) (2:36 JQuivey R.N.) Urine Urgent (02:01/15/2017 José Miguel CONTRERAS) (Ack 2:34 LMuller) (2:36 JQuivey R.N.) Urine Drug Screen Urgent (02:28 01/15/2017 José Miguel CONTRERAS) (Ack 2:34 LMuller) (2:36 JQuivey R.N.) Amylase Urgent (02:01/15/2017 José Miguel CONTRERAS) (Ack 2:34 LMuller) (2:56 JQuivey R.N.) Lipase Urgent (02:01/15/2017 José Miguel CONTRERAS) (Ack 2:34 LMuller) (2:56 JQuivey R.N.) Serum Quantitative Urgent (02:59 01/15/2017 José Miguel CONTRERAS) (3:03 LMuller) GC/Chlamydia (Cervix) (cervix) Urgent (03:02 01/15/2017 José Miguel CONTRERAS) (Ack 3:05 LMuller) (4:46 LMuller) Wet Prep (Cervix) (cervix) Urgent (03:02 01/15/2017 José Miguel CONTRERAS) (Ack 3:05 LMuller) (4:46 LMuller) US Pelvic Complete w Transvag Urgent (03:04 01/15/2017 José Miguel CONTRERAS) (Ack 3:05 LMuller) (4:00 LMuller) - (VDRL) (04:42 01/15/2017 José Miguel CONTRERAS) (4:48 LMuller) HIV I and II Urgent (04:42 01/15/2017 José Miguel CONTRERAS) (4:46 LMuller) Hepatitis Evaluation VII Urgent (04:42 01/15/2017 José Miguel CONTRERAS) (4:48 LMuller) MEDICATION ORDERS: Ceftriaxone IM 250 mg (NOW) (04:44 01/15/2017 José Miguel CONTRERAS) (Ack 4:47 JQuivey R.N.) (5:27 JQuivey R.N.) Zithromax PO 1000 mg (NOW) (04:45 01/15/2017 José Miguel CONTRERAS) (Ack 4:47 JQuivey R.N.) (5:03 JQuivey R.N.) IV FLUIDS: IV NS : initial bolus 500 mL (1000 mL/hr), then 125 mL/hr for 4h (NOW); Urgent (02:28 01/15/2017 José Miguel CONTRERAS) (Ack 2:41 RCollier R.N.) (2:55 JQuivey R.N.) ORDER SHEET NOTES: [Electronically signed by Albert Solano R.N. (05:01/15/2017)] [Electronically locked/signed by Albert Solano R.N. (05:01/15/2017)]
--- NOTE | 2017-01-15 05:30 | ED ORDER SUMMARY ---
..... Patient: PENNY RODRIGUEZ OrderSheet [facility] VisitID: [id number] [place] [address] 31y, F Registration Date/Time: 01/15/2017 ORDER SHEET Weight: 62.1 kg (stated) Allergies: Bactrim GENERAL ORDERS: CBC w Diff Urgent (02:28 01/15/2017 José Miguel CONTRERAS) (Ack 2:34 LMuller) (2:56 JQuivey R.N.) CMP Urgent (02:01/15/2017 José Miguel CONTRERAS) (Ack 2:34 LMuller) (2:56 JQuivey R.N.) UA-Culture if indicated Urgent (02:01/15/2017 José Miguel CONTRERAS) (Ack 2:34 LMuller) (2:36 JQuivey R.N.) Urine Urgent (02:01/15/2017 José Miguel CONTRERAS) (Ack 2:34 LMuller) (2:36 JQuivey R.N.) Urine Drug Screen Urgent (02:28 01/15/2017 José Miguel CONTRERAS) (Ack 2:34 LMuller) (2:36 JQuivey R.N.) Amylase Urgent (02:01/15/2017 José Miguel CONTRERAS) (Ack 2:34 LMuller) (2:56 JQuivey R.N.) Lipase Urgent (02:01/15/2017 José Miguel CONTRERAS) (Ack 2:34 LMuller) (2:56 JQuivey R.N.) Serum Quantitative Urgent (02:59 01/15/2017 José Miguel CONTRERAS) (3:03 LMuller) GC/Chlamydia (Cervix) (cervix) Urgent (03:02 01/15/2017 José Miguel CONTRERAS) (Ack 3:05 LMuller) (4:46 LMuller) Wet Prep (Cervix) (cervix) Urgent (03:02 01/15/2017 José Miguel CONTRERAS) (Ack 3:05 LMuller) (4:46 LMuller) US Pelvic Complete w Transvag Urgent (03:04 01/15/2017 José Miguel CONTRERAS) (Ack 3:05 LMuller) (4:00 LMuller) - (VDRL) (04:42 01/15/2017 José Miguel CONTRERAS) (4:48 LMuller) HIV I and II Urgent (04:42 01/15/2017 José Miguel CONTRERAS) (4:46 LMuller) Hepatitis Evaluation VII Urgent (04:42 01/15/2017 José Miguel CONTRERAS) (4:48 LMuller) MEDICATION ORDERS: Ceftriaxone IM 250 mg (NOW) (04:44 01/15/2017 José Miguel CONTRERAS) (Ack 4:47 JQuivey R.N.) (5:27 JQuivey R.N.) Zithromax PO 1000 mg (NOW) (04:45 01/15/2017 José Miguel CONTRERAS) (Ack 4:47 JQuivey R.N.) (5:03 JQuivey R.N.) IV FLUIDS: IV NS : initial bolus 500 mL (1000 mL/hr), then 125 mL/hr for 4h (NOW); Urgent (02:28 01/15/2017 José Miguel CONTRERAS) (Ack 2:41 RCollier R.N.) (2:55 JQuivey R.N.) ORDER SHEET NOTES: [Electronically signed by Albert Solano R.N. (05:01/15/2017)] [Electronically locked/signed by Albert Solano R.N. (05:01/15/2017)]
--- NOTE | 2017-01-15 14:44 | DIAGNOSTIC IMAGING REPORT ---
PROCEDURE: US COMPLETE PELVIC W/TRANSVAG INDICATION: Pelvic pain. Recent surgery for ectopic . HCG level 61. TECHNIQUE: Transabdominal and endovaginal veloz scale and color Doppler sonographic images of the female pelvis were obtained. COMPARISON: Comparison made to CT abdomen pelvis (01/08/2017, and obstetric ultrasound (01/07/2017). FINDINGS: TRANSABDOMINAL SCANS: Uterus is not well visualized transabdominally (bladder incompletely filled). TRANSVAGINAL SCANS: Uterus is of normal size (9.3 x 5.2 x 6.8 cm). Endometrial thickness is normal (7 mm). There is 1.1 cm ovoid isoechoic nodule in the left upper endometrial lining suspicious for endometrial polyp. Right ovary is not visualized (probable right oophorectomy). Left ovary is normal (3.9 cm) with normal vascularity. Trace free fluid. IMPRESSION: 1. Right ovary is not visualized (oophorectomy). 2. Normal left ovary. 3. Trace free fluid. 4. Findings suggest 1.1 cm endometrial polyp (left upper endometrium).
--- NOTE | 2017-01-15 22:31 | ED DISCHARGE INSTRUCTIONS ---
Patient: PENNY RODRIGUEZ General Instructions [facility] VisitID: [id number] [place] [id number] 31y, F Registration Date/Time: 01/15/2017 Anemia. Pelvic pain. Abnormal tests: (Quantitative hCG of 61. It is likely that this is a decrease from your recent ectopic . However, given your recent unprotected sexual activity, this should be followed up in 2 days as discussed.). Substance abuse- methamphetamines. INSTRUCTIONS (Pursue substance abuse counseling and treatment as discussed.). Warnings: Further evaluation is necessary. GENERAL WARNINGS: Return or contact your physician immediately if your condition worsens or changes unexpectedly, if not improving as expected, or if other problems arise. Understanding of the discharge instructions verbalized by patient. Follow-up with: Dionisio Solitario MD, Obstetrics/Gynecology, , [facility], [address] [place] [address] Follow up in two days. Call for an appointment. ADDITIONAL INFORMATION Anemia [Type Not Specified, Adult] Red blood cells carry oxygen to the tissues of the body. Anemia is a condition where the size or number of red blood cells in the body is reduced. Iron is needed to make red blood cells. The most common cause of anemia is iron deficiency. This may be due to: i) Blood loss (heavy menstrual periods or bleeding from the stomach or intestines); or, ii) Not eating enough iron-containing foods. Other causes of anemia include certain vitamin deficiencies, chronic kidney disease or certain other chronic illnesses. Anemia causes a feeling of being tired and run down. When anemia becomes severe, the skin becomes pale and there is shortness of breath with exertion. Headaches, dizziness, leg cramps with exertion, drowsiness and fatigue are other common symptoms. Home Care: If you are having symptoms of anemia listed above: -- Do not overexert yourself. -- Talk to your doctor before flying on an airplane or traveling to high altitudes. Follow Up with your doctor as advised by our staff. Additional blood testing may be required to determine the exact cause of your anemia. If testing was done on this visit, it may take several days to get all of the results. You may call this facility or follow up with your own doctor to get the results. Get Prompt Medical Attention if any of the following occur: -- Shortness of breath or chest pain -- Worsening of dizziness, fainting -- Vomiting blood or passing red or black-colored stool Pelvic Inflammatory Disease Pelvic Inflammatory Disease (PID) is an infection of the female organs (uterus, ovary, or Fallopian tubes). This is most often the result of a sexually transmitted disease (STD). Sometimes, PID can be due to an overgrowth of normal bacteria and not caused by an STD. Whatever its cause, PID is a serious problem. It can lead to infertility (inability to become ) unless it is treated promptly. Home Care: Take all of the medicine prescribed, even if you start to feel better before taking all the pills. You may use acetaminophen (Tylenol) or ibuprofen (Motrin, Advil) to control pain, unless another pain medicine was prescribed. [NOTE: If you have chronic liver or kidney disease or ever had a stomach ulcer or GI bleeding, talk with your doctor before using these medicines.] Your sexual partner should contact his own doctor or go to the Public Health Department to be examined. If his test is positive or if he is having symptoms of discharge or burning when passing urine, he should be treated, too. Avoid sexual activity until both you and your partner have finished taking all of the antibiotic medicine, and your doctor has told you that you are cured. Learn about safe sex practices and use these in the future. The safest sex is with a partner who has tested negative and only has sex with you. Condoms offer protection from spreading some sexually transmitted diseases including Gonorrhea, Chlamydia and HIV, but are not a guarantee. Follow Up with your doctor or as advised by our staff. If a culture test was taken, you may call us in three days for the results, or as directed. Another culture test should be taken 4-6 weeks after treatment to be sure the infection has cleared. Follow up with your doctor or the Public Health Department for complete STD screening, including HIV testing. For more information about STD's, contact the National STD Hotline: . Get Prompt Medical Attention if any of the following occur: No improvement after three days of treatment New or increasing lower abdominal pain or back pain Unexpected vaginal bleeding Weakness, dizziness or fainting Repeated vomiting Inability to urinate due to pain Rash or joint pain Painful open sores around the outer vagina Enlarged painful lymph nodes (lumps) in the groin Pelvic Pain, Uncertain Cause Based on your visit today, the exact cause of your pelvic pain is not certain. But your condition does not appear to be serious at this time. However, the signs of a serious problem may take more time to appear. Therefore, it is important for you to watch for any new symptoms or worsening of your condition. Home Care: Rest until you are feeling better. Avoid sexual intercourse until your pain goes away. You may use acetaminophen (Tylenol) or ibuprofen (Motrin, Advil) to control pain, unless another medicine was prescribed. [NOTE: If you have chronic liver or kidney disease or ever had a stomach ulcer or GI bleeding, talk with your doctor before using these medicines.] Follow Up with your doctor as advised. If a culture test was taken, call in two days for the results. If the culture is positive, you will be given more advice at that time. Otherwise, follow-up with your doctor or this facility as instructed. Get Prompt Medical Attention if any of the following occur: Fever of 100.4F (38C) or higher, or as directed by your healthcare provider Vaginal discharge Worsening pain Weakness, dizziness or fainting Unexpected vaginal bleeding or passage of veloz or white tissue from the vagina Pain that moves to the right lower abdomen STD, (Cervicitis) [Female, Chlamydia Vs Gc: Treated] You have an infection in the cervix (the opening to the uterus). This is due to an infection with a bacteria (either "Chlamydia" or "Gonorrhea"). This is a sexually transmitted disease (STD) and is highly contagious. It is passed by sexual contact with an infected partner. Women with an infection in the cervix, may have no symptoms or only mild symptoms early in the disease. Therefore, it is possible to pass this infection without knowing you have it. When symptoms do occur, they usually appear 2 days to 3 weeks after exposure. There may be a vaginal discharge. There may also be pain or burning when passing urine. If the infection spreads to the Fallopian tubes it causes pelvic inflammatory disease ("PID"). PID causes symptoms of lower abdominal pain and fever. If not treated, Chlamydia or Gonorrhea can cause infertility (unable to have children) by scarring the Fallopian tubes. PID also increases the risk of ectopic in the future. This infection can be treated and cured. A culture test may be taken to confirm the diagnosis. Treatment is with antibiotic medicine. Home Care: Your sexual partner must be treated at the same time, even if there are no symptoms. Your partner should contact their own doctor or go to an urgent care clinic or the Public Health Department to be examined and treated. Avoid sexual activity until both you and your partner have completed all antibiotic medicine, and you have been told by your doctor that you are no longer contagious. Take all medicines until they are finished; otherwise, symptoms may recur. Learn about safe sex practices and use these in the future. The safest sex is with a partner who has tested negative and only has sex with you. Condoms offer protection from spreading some sexually transmitted diseases including Gonorrhea, Chlamydia and HIV, but are not a guarantee. Follow Up with your doctor or as advised by our staff. If a culture test was taken, you may call us in three days for the results, or as directed. Another culture test should be taken 4-6 weeks after treatment to be sure the infection has cleared. Follow up with your doctor or the Public Health Department for complete STD screening, including HIV testing. For more information about STD's, contact the National STD Hotline: . Get Prompt Medical Attention if any of the following occur: No improvement after three days of treatment New or increasing lower abdominal pain or back pain Unexpected vaginal bleeding Weakness, dizziness or fainting Repeated vomiting Inability to urinate due to pain Rash or joint pain Painful open sores around the outer vagina Enlarged painful lymph nodes (lumps) in the groin Drug Abuse Use and abuse of such drugs as marijuana, amphetamines (speed, crank), cocaine, heroin or prescription pain medicines (Vicodin, codeine), sedatives and sleeping pills (Valium, Klonopin), PCP, mescaline and LSD may lead to addiction or dependence. Once this occurs, you are at greater risk for any of the following: Craving for the drug and unable to stop using the drug even though you think you want to stop (psychological dependence) Drug withdrawal symptoms if you stop taking the drug (physical dependence) Loss of your job or your family Arrest, conviction and usp sentence for possession of an illegal substance or for driving under the influence of such a substance Accidental injuries to yourself or others while you are under the influence of the drug (in a car or at home). HIV infection (much greater risk if you use IV drugs) Other sexually transmitted diseases (herpes, chlamydia, gonorrhea and others) Severe and fatal infection of the heart valves (if you use IV drugs) Stroke, heart attack, hepatitis B or C, kidney failure from overdose Home Care: Admit you have a drug problem. Ask for help from your family and close friends. Seek professional help. This could be in the form of individual psychotherapy or counseling or an outpatient, inpatient, or residential drug treatment program. Join a self-help group for drug abuse. Avoid friends who abuse drugs themselves or tempt you to continue abusing drugs. Eat a balanced diet and begin a regular exercise program. Follow Up with your doctor or as advised by our staff. Contact one of the resources below for help. National [place] on Alcoholism and Drug Dependence www.ncadd.org 449-213-YPMW Narcotics Anonymous www.na.org 854-396-3446 National Alcohol and Substance Abuse Information Center (for referral to treatment programs) www.addictioncareAscender [employer]Localist 659-068-6531 Get Prompt Medical Attention if any of the following occur: Agitation, anxiety, unable to sleep Unintended weight loss (more than 10 to 15 pounds over 3 months) Seizure Chest pain Fever of 100.4F (38C) or higher, or as directed by your healthcare provider Excess drowsiness or inability to be awakened Shortness of breath Slow breathing under 8 breaths per minute Cough with colored sputum Redness, swelling or tenderness at an injection site You have been given the following additional information: Anemia, Type Not Specified (Adult) Pelvic Inflammatory Disease Pelvic Pain, Unknown Cause Cervicitis (STD), Treated Drug Abuse (Electronically signed by Bubba Dyson MD 01/15/2017 22:30)
--- NOTE | 2017-01-15 22:31 | ED MED RECONCILIATION SUMMARY ---
Patient: PENNY RODRIGUEZ Medication Reconciliation Report [facility] VisitID: [id number] [address] [place] [address] 31y, F Registration Date/Time: 01/15/2017 Weight: 62.1 kg Height/Length: 64 in. BMI: 23.5 ALLERGIES: Bactrim The patient's Home Medications are listed below: THE FOLLOWING MEDICATIONS NEED TO BE RECONCILED: Percocet Oral The source(s) of the original Home Medication information: patient The following Medications were given to the patient in the Emergency Department: IV NS IV Fluids bolus 0, then 1000 mL/hr, administered: 01/15/2017 2:52:00 AM Zithromax [PO] PO 1000 mg, administered: 01/15/2017 4:58:00 AM Ceftriaxone [IM] IM 250 mg, administered: 01/15/2017 5:04:00 AM The following Medications were prescribed to the patient: None.
--- NOTE | 2017-01-15 22:31 | ED DISCHARGE INSTRUCTIONS ---
Patient: PENNY RODRIGUEZ General Instructions [facility] VisitID: [id number] [place] [id number] 31y, F Registration Date/Time: 01/15/2017 Anemia. Pelvic pain. Abnormal tests: (Quantitative hCG of 61. It is likely that this is a decrease from your recent ectopic . However, given your recent unprotected sexual activity, this should be followed up in 2 days as discussed.). Substance abuse- methamphetamines. INSTRUCTIONS (Pursue substance abuse counseling and treatment as discussed.). Warnings: Further evaluation is necessary. GENERAL WARNINGS: Return or contact your physician immediately if your condition worsens or changes unexpectedly, if not improving as expected, or if other problems arise. Understanding of the discharge instructions verbalized by patient. Follow-up with: Dionisio Solitario MD, Obstetrics/Gynecology, , [facility], [address] [place] [address] Follow up in two days. Call for an appointment. ADDITIONAL INFORMATION Anemia [Type Not Specified, Adult] Red blood cells carry oxygen to the tissues of the body. Anemia is a condition where the size or number of red blood cells in the body is reduced. Iron is needed to make red blood cells. The most common cause of anemia is iron deficiency. This may be due to: i) Blood loss (heavy menstrual periods or bleeding from the stomach or intestines); or, ii) Not eating enough iron-containing foods. Other causes of anemia include certain vitamin deficiencies, chronic kidney disease or certain other chronic illnesses. Anemia causes a feeling of being tired and run down. When anemia becomes severe, the skin becomes pale and there is shortness of breath with exertion. Headaches, dizziness, leg cramps with exertion, drowsiness and fatigue are other common symptoms. Home Care: If you are having symptoms of anemia listed above: -- Do not overexert yourself. -- Talk to your doctor before flying on an airplane or traveling to high altitudes. Follow Up with your doctor as advised by our staff. Additional blood testing may be required to determine the exact cause of your anemia. If testing was done on this visit, it may take several days to get all of the results. You may call this facility or follow up with your own doctor to get the results. Get Prompt Medical Attention if any of the following occur: -- Shortness of breath or chest pain -- Worsening of dizziness, fainting -- Vomiting blood or passing red or black-colored stool Pelvic Inflammatory Disease Pelvic Inflammatory Disease (PID) is an infection of the female organs (uterus, ovary, or Fallopian tubes). This is most often the result of a sexually transmitted disease (STD). Sometimes, PID can be due to an overgrowth of normal bacteria and not caused by an STD. Whatever its cause, PID is a serious problem. It can lead to infertility (inability to become ) unless it is treated promptly. Home Care: Take all of the medicine prescribed, even if you start to feel better before taking all the pills. You may use acetaminophen (Tylenol) or ibuprofen (Motrin, Advil) to control pain, unless another pain medicine was prescribed. [NOTE: If you have chronic liver or kidney disease or ever had a stomach ulcer or GI bleeding, talk with your doctor before using these medicines.] Your sexual partner should contact his own doctor or go to the Public Health Department to be examined. If his test is positive or if he is having symptoms of discharge or burning when passing urine, he should be treated, too. Avoid sexual activity until both you and your partner have finished taking all of the antibiotic medicine, and your doctor has told you that you are cured. Learn about safe sex practices and use these in the future. The safest sex is with a partner who has tested negative and only has sex with you. Condoms offer protection from spreading some sexually transmitted diseases including Gonorrhea, Chlamydia and HIV, but are not a guarantee. Follow Up with your doctor or as advised by our staff. If a culture test was taken, you may call us in three days for the results, or as directed. Another culture test should be taken 4-6 weeks after treatment to be sure the infection has cleared. Follow up with your doctor or the Public Health Department for complete STD screening, including HIV testing. For more information about STD's, contact the National STD Hotline: . Get Prompt Medical Attention if any of the following occur: No improvement after three days of treatment New or increasing lower abdominal pain or back pain Unexpected vaginal bleeding Weakness, dizziness or fainting Repeated vomiting Inability to urinate due to pain Rash or joint pain Painful open sores around the outer vagina Enlarged painful lymph nodes (lumps) in the groin Pelvic Pain, Uncertain Cause Based on your visit today, the exact cause of your pelvic pain is not certain. But your condition does not appear to be serious at this time. However, the signs of a serious problem may take more time to appear. Therefore, it is important for you to watch for any new symptoms or worsening of your condition. Home Care: Rest until you are feeling better. Avoid sexual intercourse until your pain goes away. You may use acetaminophen (Tylenol) or ibuprofen (Motrin, Advil) to control pain, unless another medicine was prescribed. [NOTE: If you have chronic liver or kidney disease or ever had a stomach ulcer or GI bleeding, talk with your doctor before using these medicines.] Follow Up with your doctor as advised. If a culture test was taken, call in two days for the results. If the culture is positive, you will be given more advice at that time. Otherwise, follow-up with your doctor or this facility as instructed. Get Prompt Medical Attention if any of the following occur: Fever of 100.4F (38C) or higher, or as directed by your healthcare provider Vaginal discharge Worsening pain Weakness, dizziness or fainting Unexpected vaginal bleeding or passage of veloz or white tissue from the vagina Pain that moves to the right lower abdomen STD, (Cervicitis) [Female, Chlamydia Vs Gc: Treated] You have an infection in the cervix (the opening to the uterus). This is due to an infection with a bacteria (either "Chlamydia" or "Gonorrhea"). This is a sexually transmitted disease (STD) and is highly contagious. It is passed by sexual contact with an infected partner. Women with an infection in the cervix, may have no symptoms or only mild symptoms early in the disease. Therefore, it is possible to pass this infection without knowing you have it. When symptoms do occur, they usually appear 2 days to 3 weeks after exposure. There may be a vaginal discharge. There may also be pain or burning when passing urine. If the infection spreads to the Fallopian tubes it causes pelvic inflammatory disease ("PID"). PID causes symptoms of lower abdominal pain and fever. If not treated, Chlamydia or Gonorrhea can cause infertility (unable to have children) by scarring the Fallopian tubes. PID also increases the risk of ectopic in the future. This infection can be treated and cured. A culture test may be taken to confirm the diagnosis. Treatment is with antibiotic medicine. Home Care: Your sexual partner must be treated at the same time, even if there are no symptoms. Your partner should contact their own doctor or go to an urgent care clinic or the Public Health Department to be examined and treated. Avoid sexual activity until both you and your partner have completed all antibiotic medicine, and you have been told by your doctor that you are no longer contagious. Take all medicines until they are finished; otherwise, symptoms may recur. Learn about safe sex practices and use these in the future. The safest sex is with a partner who has tested negative and only has sex with you. Condoms offer protection from spreading some sexually transmitted diseases including Gonorrhea, Chlamydia and HIV, but are not a guarantee. Follow Up with your doctor or as advised by our staff. If a culture test was taken, you may call us in three days for the results, or as directed. Another culture test should be taken 4-6 weeks after treatment to be sure the infection has cleared. Follow up with your doctor or the Public Health Department for complete STD screening, including HIV testing. For more information about STD's, contact the National STD Hotline: . Get Prompt Medical Attention if any of the following occur: No improvement after three days of treatment New or increasing lower abdominal pain or back pain Unexpected vaginal bleeding Weakness, dizziness or fainting Repeated vomiting Inability to urinate due to pain Rash or joint pain Painful open sores around the outer vagina Enlarged painful lymph nodes (lumps) in the groin Drug Abuse Use and abuse of such drugs as marijuana, amphetamines (speed, crank), cocaine, heroin or prescription pain medicines (Vicodin, codeine), sedatives and sleeping pills (Valium, Klonopin), PCP, mescaline and LSD may lead to addiction or dependence. Once this occurs, you are at greater risk for any of the following: Craving for the drug and unable to stop using the drug even though you think you want to stop (psychological dependence) Drug withdrawal symptoms if you stop taking the drug (physical dependence) Loss of your job or your family Arrest, conviction and senior care sentence for possession of an illegal substance or for driving under the influence of such a substance Accidental injuries to yourself or others while you are under the influence of the drug (in a car or at home). HIV infection (much greater risk if you use IV drugs) Other sexually transmitted diseases (herpes, chlamydia, gonorrhea and others) Severe and fatal infection of the heart valves (if you use IV drugs) Stroke, heart attack, hepatitis B or C, kidney failure from overdose Home Care: Admit you have a drug problem. Ask for help from your family and close friends. Seek professional help. This could be in the form of individual psychotherapy or counseling or an outpatient, inpatient, or residential drug treatment program. Join a self-help group for drug abuse. Avoid friends who abuse drugs themselves or tempt you to continue abusing drugs. Eat a balanced diet and begin a regular exercise program. Follow Up with your doctor or as advised by our staff. Contact one of the resources below for help. National [place] on Alcoholism and Drug Dependence www.ncadd.org 288-130-NEBX Narcotics Anonymous www.na.org 040-832-9738 National Alcohol and Substance Abuse Information Center (for referral to treatment programs) www.addictioncareGazemetrix.Kinetic 554-176-6221 Get Prompt Medical Attention if any of the following occur: Agitation, anxiety, unable to sleep Unintended weight loss (more than 10 to 15 pounds over 3 months) Seizure Chest pain Fever of 100.4F (38C) or higher, or as directed by your healthcare provider Excess drowsiness or inability to be awakened Shortness of breath Slow breathing under 8 breaths per minute Cough with colored sputum Redness, swelling or tenderness at an injection site You have been given the following additional information: Anemia, Type Not Specified (Adult) Pelvic Inflammatory Disease Pelvic Pain, Unknown Cause Cervicitis (STD), Treated Drug Abuse (Electronically signed by Bubba Dyson MD 01/15/2017 22:30)
--- NOTE | 2017-01-15 22:31 | ED MAR SUMMARY ---
..... Medication Administration Record [facility] [address] [place] [address] Patient: PENNY RODRIGUEZ Visit ID: [id number] 31y, F Weight: 62.1 kg Height/Length: 64 in BMI: 23.5 ALLERGIES: Bactrim Start 02:52 01/15/2017 Albret Solano RFarhadNFarhad, Stop 05:00 01/15/2017 Albert Solano R.N. Medication Administered: IV NS (SALINE), Dose: IV Fluids over 30 minute(s), Rate: 1000 mL/hr, Dispensed: 1000 mL bag, Site: #1 right forearm. Medication Ordered: IV NS : initial bolus 500 mL (1000 mL/hr), then 125 mL/hr for 4h (NOW); Urgent. Given 04:58 01/15/2017 Albert Solano RFarhadNFarhad Medication Administered: ZITHROMAX [PO], Dose: 1000 mg PO. Medication Ordered: Zithromax PO 1000 mg (NOW). Given 05:04 01/15/2017 Albert Solano RFarhadNFarhad Medication Administered: CEFTRIAXONE [IM], Dose: 250 mg IM. Medication Ordered: Ceftriaxone IM 250 mg (NOW).
--- NOTE | 2017-01-15 22:31 | ED MAR SUMMARY ---
..... Medication Administration Record [facility] [address] [place] [address] Patient: PENNY RODRIGUEZ Visit ID: [id number] 31y, F Weight: 62.1 kg Height/Length: 64 in BMI: 23.5 ALLERGIES: Bactrim Start 02:52 01/15/2017 Albert Solano RFarhadNFarhad, Stop 05:00 01/15/2017 Albert Solano R.N. Medication Administered: IV NS (SALINE), Dose: IV Fluids over 30 minute(s), Rate: 1000 mL/hr, Dispensed: 1000 mL bag, Site: #1 right forearm. Medication Ordered: IV NS : initial bolus 500 mL (1000 mL/hr), then 125 mL/hr for 4h (NOW); Urgent. Given 04:58 01/15/2017 Albert Solano RFarhadNFarhad Medication Administered: ZITHROMAX [PO], Dose: 1000 mg PO. Medication Ordered: Zithromax PO 1000 mg (NOW). Given 05:04 01/15/2017 Albert Solano RFarhadNFarhad Medication Administered: CEFTRIAXONE [IM], Dose: 250 mg IM. Medication Ordered: Ceftriaxone IM 250 mg (NOW).
--- NOTE | 2017-01-15 22:31 | ED MED RECONCILIATION SUMMARY ---
Patient: PENNY RODRIGUEZ Medication Reconciliation Report [facility] VisitID: [id number] [address] [place] [address] 31y, F Registration Date/Time: 01/15/2017 Weight: 62.1 kg Height/Length: 64 in. BMI: 23.5 ALLERGIES: Bactrim The patient's Home Medications are listed below: THE FOLLOWING MEDICATIONS NEED TO BE RECONCILED: Percocet Oral The source(s) of the original Home Medication information: patient The following Medications were given to the patient in the Emergency Department: IV NS IV Fluids bolus 0, then 1000 mL/hr, administered: 01/15/2017 2:52:00 AM Zithromax [PO] PO 1000 mg, administered: 01/15/2017 4:58:00 AM Ceftriaxone [IM] IM 250 mg, administered: 01/15/2017 5:04:00 AM The following Medications were prescribed to the patient: None.
== END 2017-01-15 05:26 | disposition home or self-care (01) ==
LOC: ED SRH 02:11
DX: R10.2 Pelvic and perineal pain (principal); D64.9 Anemia, unspecified; F19.10 Other psychoactive substance abuse, uncomplicated; R79.89 Other specified abnormal findings of blood chemistry; F17.210 Nicotine dependence, cigarettes, uncomplicated
CPT/HCPCS: 90004; 90073; 90075; 90077; 90078; 90100; 90195; 90197; 90364; 91227; 91228; 92235; 92530; 92760; 92761; 92762; 92763; 92764; 92765; 92766; 92767; 92863; 93070; 95059; 98480; 99777

== ENCOUNTER 2017-02-18 18:21 | Emergency (ER) | payer OTHER ==
--- NOTE | 2017-02-18 20:52 | DIAGNOSTIC IMAGING REPORT ---
PROCEDURE: CT SOFT TISSUE NECK WITH CONT INDICATION: PAIN TECHNIQUE: 125 ml of Isovue 300 injected intravenously and axial images were obtained from the skull base through the upper mediastinum with sagittal and coronal reformations. In addition, angled axial oblique images were obtained (avoiding dental hardware). COMPARISON: None. FINDINGS: Prominent soft tissue swelling along the right lateral aspect of the mandible with several adjacent to the right mandibular dental cavities. No evidence of an abscess. Enlarged right submandibular lymph nodes. Some of the molars are missing bilaterally. Mild bilateral cervical adenopathy. The parotid and submandibular glands are normal. 8 mm left thyroid nodule. Bones are unremarkable. IMPRESSION: 1. Right submandibular cellulitis adjacent to multiple cavities but no evidence of an abscess 2. Left thyroid nodule 3. Results discussed with RUBI Hernandez All CT scans at this facility use dose modulation, iterative reconstruction, and/or weight-based dosing when appropriate to reduce radiation dose to as low as reasonably achievable.
--- NOTE | 2017-02-18 21:45 | ED CLINICAL REPORT ---
Clinical Report - Physicians/Mid Levels [facility] [address] [place] [address] 02/18/2017 18:22 Patient: PENNY RODRIGUEZ Time Seen: 19:14 Feb 18 2017. Arrived- By private vehicle. Historian- patient. HISTORY OF PRESENT ILLNESS Chief Complaint: DENTAL PAIN. This started just prior to arrival and is still present. Pain described as mild. The patient has had toothache and swelling of the jaw and face. (Patient reports dental pain over the last 4 days, worsening acutely over the last 24 hours. Patient reports worsening since being seen at the clinic, started on a penicillin. Denies any new trauma. Denies any drainage. Denies any difficulty swallowing. Patient denies fevers or chills.). Similar symptoms previously: REVIEW OF SYSTEMS No fever, chest pain, headache or fainting episodes. All systems otherwise negative, except as recorded above. SOCIAL HISTORY Smoker- current status unknown. Alcohol use. No drug use. ADDITIONAL NOTES The nursing notes have been reviewed. PHYSICAL EXAM Vital Signs: 02/18/2017 18:33 BP: 120/75. HR: 101. RR: 16. O2 saturation: 100%. Temp: 98.3 F. Pain level now: 5/10. Appearance: Alert. Head: Normal external inspection. (External rate submandibular tenderness and swelling. No palpable abscess or mass.). Eyes: Conjunctivae and eyelids normal. ENT: Dental decay (significant decay of the right side, as well as left side lower aspect. No palpable mass.). Dental tenderness. Ears normal. Lips normal. No pharyngeal erythema, tonsillar exudate, peritonsillar mass or trismus. Neck: Trachea midline. No adenopathy. CVS: Normal heart rate and rhythm. Heart sounds normal. Respiratory: No respiratory distress. Breath sounds normal. Neuro: Oriented X 3. LABS, X-RAYS, AND EKG Laboratory Tests: CBC w Diff: (RASHEED: 02/18/2017 19:15) ( MsgRcvd 02/18/2017 19:36) Final results Test Result Flag Units (Reference) WHITE BLOOD COUNT 9.9 K/uL (4.5-11.5) RED BLOOD COUNT 4.28 M/uL (4.00-5.20) HEMOGLOBIN 11.0 L gm/dL (12.0-16.0) HEMATOCRIT 34.5 L % (36.0-46.0) MEAN CELL VOLUME 81 fL (80-100) MEAN CORPUSCULAR HGB 26 pg (26-34) MEAN CORPUSCULAR HGB CONC 32 g/dL (31-37) RED CELL DISTRIBUTION WIDTH 15.6 H % (11.6-14.8) PLATELET COUNT 278 K/uL (150-400) NEUTROPHIL % 78.2 H % (50-75) LYMPH % 12.7 L % (25-40) MONO % 8.7 % (3-14) EOSINOPHIL % 0.3 % (0-4) BASOPHIL % 0.1 % (0-2) Serum Quantitative: (RASHEED: 02/18/2017 19:15) ( [facility] 02/18/2017 21:09) Final results Test Result Flag Units (Reference) BETA HCG, QUANTITATIVE 1 mIU/mL REFERENCE RANGE:Adult Males: <2 mIU/mLNon- Females: <6 mIU/mL Females:Approximate Approximate hCGGestational Age Range (mIU/mL) 0-1 week 0-501-2 weeks 40-3002-3 weeks 100-20904-0 weeks 500-59573-9 months 5,000-200,0002-3 months 10,000-100,0002nd trimester 3,000-50,0003rd trimester 1,000-50,000 BMP: (RASHEED: 02/18/2017 19:15) ( [facility] 02/18/2017 19:53) Final results Test Result Flag Units (Reference) GLUCOSE 103 mg/dL (70-110) BUN 9 mg/dL (7-18) CREATININE 0.8 mg/dL (0.6-1.3) Estimated GFR >60 mL/min Estimated GFR- >60 mL/min Note: Persistent reduction over 3 months in eGFR<60 mL/min/1.73 m2 defines CKD. Patients with eGFR values>=60 mL/min/1.73 m2 may also have CKD if evidence ofpersistent proteinuria. Additional information may be foundat www.kidney.org. SODIUM 138 mmol/L (136-145) POTASSIUM 3.8 mmol/L (3.5-5.1) CHLORIDE 101 mmol/L (98-107) CARBON DIOXIDE 30 mmol/L (21-32) CALCIUM 8.8 mg/dL (8.5-10.1) . Note - Tests: (ct soft tissue neck w/ contrast IMPRESSION: 1. Right submandibular cellulitis adjacent to multiple cavities but no evidence of an abscess 2. Left thyroid nodule 3. Results discussed with Sav Tai, PAC All CT scans at this facility use dose modulation, iterative reconstruction, and/or weight-based dosing when appropriate to reduce radiation dose to as low as reasonably achievable. Electronically Final signed by:Felipe Steward MD 02/18/2017 8:51:43 PM). PROGRESS AND PROCEDURES Course of Care: Patient with no abscess. Patient with signs of cellulitis, dental infection with no signs of Bal's angina. Afebrile. No leukocytosis. Patient is nonseptic. Given IV clindamycin. Otherwise to follow-up with dentist. Patient is stable. Patient/family counseled. Differential Diagnosis: I considered viral pharyngitis, bacterial pharyngitis, palatine tonsillitis, lingual tonsillitis, thrush, allergic stomatitis, mononucleosis, peritonsillar cellulitis, sinusitis, foreign body and uvular edema as a possible cause of sore throat in this patient. This is a partial list of diagnoses considered. Disposition: Discharged. CLINICAL IMPRESSION Periapical dental abscess. INSTRUCTIONS Drink plenty of fluids. (warm packs to face warm salt water rinses inside mouth can stop antibiotic previously prescribed start CLINDAMYCIN, given dose in ER). Prescription Medications: Hydrocodone/APAP 5mg / 325mg: take 1 orally every 6 hours as needed for pain. (#4) Cleocin 300 mg: take 1 capsule orally every 6 hours for 10 days. No refill. Substitution is permissible. Ibuprofen 800 mg tablets: take 1 tablet orally every 8 hours for 5 days, as needed for pain. Dispense twenty (20). No refill. Follow-up: Follow up with a specialist in three days. (Electronically signed by Kathleen Tai P.A.-C 02/18/2017 23:09)
--- NOTE | 2017-02-18 21:45 | ED CLINICAL REPORT ---
Clinical Report - Physicians/Mid Levels [facility] [address] [place] [address] 02/18/2017 18:22 Patient: PENNY RODRIGUEZ Time Seen: 19:14 Feb 18 2017. Arrived- By private vehicle. Historian- patient. HISTORY OF PRESENT ILLNESS Chief Complaint: DENTAL PAIN. This started just prior to arrival and is still present. Pain described as mild. The patient has had toothache and swelling of the jaw and face. (Patient reports dental pain over the last 4 days, worsening acutely over the last 24 hours. Patient reports worsening since being seen at the clinic, started on a penicillin. Denies any new trauma. Denies any drainage. Denies any difficulty swallowing. Patient denies fevers or chills.). Similar symptoms previously: REVIEW OF SYSTEMS No fever, chest pain, headache or fainting episodes. All systems otherwise negative, except as recorded above. SOCIAL HISTORY Smoker- current status unknown. Alcohol use. No drug use. ADDITIONAL NOTES The nursing notes have been reviewed. PHYSICAL EXAM Vital Signs: 02/18/2017 18:33 BP: 120/75. HR: 101. RR: 16. O2 saturation: 100%. Temp: 98.3 F. Pain level now: 5/10. Appearance: Alert. Head: Normal external inspection. (External rate submandibular tenderness and swelling. No palpable abscess or mass.). Eyes: Conjunctivae and eyelids normal. ENT: Dental decay (significant decay of the right side, as well as left side lower aspect. No palpable mass.). Dental tenderness. Ears normal. Lips normal. No pharyngeal erythema, tonsillar exudate, peritonsillar mass or trismus. Neck: Trachea midline. No adenopathy. CVS: Normal heart rate and rhythm. Heart sounds normal. Respiratory: No respiratory distress. Breath sounds normal. Neuro: Oriented X 3. LABS, X-RAYS, AND EKG Laboratory Tests: CBC w Diff: (RASHEED: 02/18/2017 19:15) ( MsgRcvd 02/18/2017 19:36) Final results Test Result Flag Units (Reference) WHITE BLOOD COUNT 9.9 K/uL (4.5-11.5) RED BLOOD COUNT 4.28 M/uL (4.00-5.20) HEMOGLOBIN 11.0 L gm/dL (12.0-16.0) HEMATOCRIT 34.5 L % (36.0-46.0) MEAN CELL VOLUME 81 fL (80-100) MEAN CORPUSCULAR HGB 26 pg (26-34) MEAN CORPUSCULAR HGB CONC 32 g/dL (31-37) RED CELL DISTRIBUTION WIDTH 15.6 H % (11.6-14.8) PLATELET COUNT 278 K/uL (150-400) NEUTROPHIL % 78.2 H % (50-75) LYMPH % 12.7 L % (25-40) MONO % 8.7 % (3-14) EOSINOPHIL % 0.3 % (0-4) BASOPHIL % 0.1 % (0-2) Serum Quantitative: (RASHEED: 02/18/2017 19:15) ( [facility] 02/18/2017 21:09) Final results Test Result Flag Units (Reference) BETA HCG, QUANTITATIVE 1 mIU/mL REFERENCE RANGE:Adult Males: <2 mIU/mLNon- Females: <6 mIU/mL Females:Approximate Approximate hCGGestational Age Range (mIU/mL) 0-1 week 0-501-2 weeks 40-3002-3 weeks 100-94794-8 weeks 500-15964-9 months 5,000-200,0002-3 months 10,000-100,0002nd trimester 3,000-50,0003rd trimester 1,000-50,000 BMP: (RASHEED: 02/18/2017 19:15) ( [facility] 02/18/2017 19:53) Final results Test Result Flag Units (Reference) GLUCOSE 103 mg/dL (70-110) BUN 9 mg/dL (7-18) CREATININE 0.8 mg/dL (0.6-1.3) Estimated GFR >60 mL/min Estimated GFR- >60 mL/min Note: Persistent reduction over 3 months in eGFR<60 mL/min/1.73 m2 defines CKD. Patients with eGFR values>=60 mL/min/1.73 m2 may also have CKD if evidence ofpersistent proteinuria. Additional information may be foundat www.kidney.org. SODIUM 138 mmol/L (136-145) POTASSIUM 3.8 mmol/L (3.5-5.1) CHLORIDE 101 mmol/L (98-107) CARBON DIOXIDE 30 mmol/L (21-32) CALCIUM 8.8 mg/dL (8.5-10.1) . Note - Tests: (ct soft tissue neck w/ contrast IMPRESSION: 1. Right submandibular cellulitis adjacent to multiple cavities but no evidence of an abscess 2. Left thyroid nodule 3. Results discussed with Sav Tai, PAC All CT scans at this facility use dose modulation, iterative reconstruction, and/or weight-based dosing when appropriate to reduce radiation dose to as low as reasonably achievable. Electronically Final signed by:Felipe Steward MD 02/18/2017 8:51:43 PM). PROGRESS AND PROCEDURES Course of Care: Patient with no abscess. Patient with signs of cellulitis, dental infection with no signs of Bal's angina. Afebrile. No leukocytosis. Patient is nonseptic. Given IV clindamycin. Otherwise to follow-up with dentist. Patient is stable. Patient/family counseled. Differential Diagnosis: I considered viral pharyngitis, bacterial pharyngitis, palatine tonsillitis, lingual tonsillitis, thrush, allergic stomatitis, mononucleosis, peritonsillar cellulitis, sinusitis, foreign body and uvular edema as a possible cause of sore throat in this patient. This is a partial list of diagnoses considered. Disposition: Discharged. CLINICAL IMPRESSION Periapical dental abscess. INSTRUCTIONS Drink plenty of fluids. (warm packs to face warm salt water rinses inside mouth can stop antibiotic previously prescribed start CLINDAMYCIN, given dose in ER). Prescription Medications: Hydrocodone/APAP 5mg / 325mg: take 1 orally every 6 hours as needed for pain. (#4) Cleocin 300 mg: take 1 capsule orally every 6 hours for 10 days. No refill. Substitution is permissible. Ibuprofen 800 mg tablets: take 1 tablet orally every 8 hours for 5 days, as needed for pain. Dispense twenty (20). No refill. Follow-up: Follow up with a specialist in three days. (Electronically signed by Kathleen Tai P.A.-C 02/18/2017 23:09)
--- NOTE | 2017-02-18 21:45 | ED ORDER SUMMARY ---
..... Patient: PENNY RODRIGUEZ OrderSheet [facility] VisitID: [id number] [place] [address] 31y, F Registration Date/Time: 02/18/2017 ORDER SHEET Weight: 59.8 kg (stated) Allergies: Bactrim, Sulfa Antibiotics GENERAL ORDERS: CT Soft Tissue Neck w Cont (No) (see lab) Urgent (19:02 02/18/2017 EKoroleva P.A.-C) (Ack 19:08 LMuller) (20:46 MCampbell) CBC w Diff Urgent (19:02 02/18/2017 EKoroleva P.A.-C) (Ack 19:08 LMuller) (20:04 KKnebel R.N.) BMP Urgent (19:02 02/18/2017 EKoroleva P.A.-C) (Ack 19:08 LMuller) (20:04 KKnebel R.N.) POC - Urine hCG (19:02 02/18/2017 EKoroleva P.A.-C) (20:03 KKnebel R.N.) Serum Quantitative Urgent (19:11 02/18/2017 EKoroleva P.A.-C) (Ack 19:20 LMuller) (20:04 KKnebel R.N.) MEDICATION ORDERS: Hydrocodone-APAP PO 5/325 mg (NOW, HIGH ALERT MEDICATION) (20:53 02/18/2017 EKoroleva P.A.-C) (20:59 EHassan R.N.) IV FLUIDS: IV NS : initial bolus 1000 mL (1000 mL/hr), then 1000 mL/hr for X1 (NOW); Deepak (19:01 02/18/2017 EKoroleva P.A.-C) (20:07 KKnebel R.N.) Clindamycin IV 900 mg/50mL (NOW) (20:35 02/18/2017 EKoroleva P.A.-C) (21:16 KKnebel R.N.) ORDER SHEET NOTES: [Electronically signed by Mai Calvert R.N. (22:43 02/18/2017)] [Electronically signed by Kathleen Tai P.A.-C (23:09 02/18/2017)] [Electronically locked/signed by Mai Calvert R.N. (22:43 02/18/2017)]
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
--- NOTE | 2017-02-18 21:45 | ED ORDER SUMMARY ---
..... Patient: PENNY RODRIGUEZ OrderSheet [facility] VisitID: [id number] [place] [address] 31y, F Registration Date/Time: 02/18/2017 ORDER SHEET Weight: 59.8 kg (stated) Allergies: Bactrim, Sulfa Antibiotics GENERAL ORDERS: CT Soft Tissue Neck w Cont (No) (see lab) Urgent (19:02 02/18/2017 EKoroleva P.A.-C) (Ack 19:08 LMuller) (20:46 MCampbell) CBC w Diff Urgent (19:02 02/18/2017 EKoroleva P.A.-C) (Ack 19:08 LMuller) (20:04 KKnebel R.N.) BMP Urgent (19:02 02/18/2017 EKoroleva P.A.-C) (Ack 19:08 LMuller) (20:04 KKnebel R.N.) POC - Urine hCG (19:02 02/18/2017 EKoroleva P.A.-C) (20:03 KKnebel R.N.) Serum Quantitative Urgent (19:11 02/18/2017 EKoroleva P.A.-C) (Ack 19:20 LMuller) (20:04 KKnebel R.N.) MEDICATION ORDERS: Hydrocodone-APAP PO 5/325 mg (NOW, HIGH ALERT MEDICATION) (20:53 02/18/2017 EKoroleva P.A.-C) (20:59 EHassan R.N.) IV FLUIDS: IV NS : initial bolus 1000 mL (1000 mL/hr), then 1000 mL/hr for X1 (NOW); Deepak (19:01 02/18/2017 EKoroleva P.A.-C) (20:07 KKnebel R.N.) Clindamycin IV 900 mg/50mL (NOW) (20:35 02/18/2017 EKoroleva P.A.-C) (21:16 KKnebel R.N.) ORDER SHEET NOTES: [Electronically signed by Mai Calvert R.N. (22:43 02/18/2017)] [Electronically signed by Kathleen Tai P.A.-C (23:09 02/18/2017)] [Electronically locked/signed by Mai Calvret R.N. (22:43 02/18/2017)]
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
--- NOTE | 2017-02-18 23:09 | ED DISCHARGE INSTRUCTIONS ---
Patient: PENNY RODRIGUEZ General Instructions [facility] VisitID: [id number] [place] [address] 31y, F Registration Date/Time: 02/18/2017 Periapical dental abscess. INSTRUCTIONS Drink plenty of fluids. (warm packs to face warm salt water rinses inside mouth can stop antibiotic previously prescribed start CLINDAMYCIN, given dose in ER). Prescription Medications: Hydrocodone/APAP 5mg / 325mg: take 1 orally every 6 hours as needed for pain. (#4) Cleocin 300 mg: take 1 capsule orally every 6 hours for 10 days. No refill. Substitution is permissible. Ibuprofen 800 mg tablets: take 1 tablet orally every 8 hours for 5 days, as needed for pain. Dispense twenty (20). No refill. Follow-up: Follow up with a specialist in three days. ADDITIONAL INFORMATION Dental Abscess With Facial Cellulitis A dental abscess is an infection at the base of a tooth. When this is untreated, it spreads to the gum near the tooth causing swelling and pain. More severe infections cause facial swelling as the bacteria spread to the nearby tissues of the face. This is a very serious condition. Once the swelling begins, it can spread rapidly. A dental abscess usually starts with a crack or cavity in the tooth. The pain is often made worse by drinking hot or cold fluids, or biting on hard foods and may spread from the tooth to the ear or jaw on the same side. Home Care: Avoid hot and cold foods and liquids since your tooth may be sensitive to temperature changes. If your tooth is chipped or cracked, or if there is a large open cavity, apply oil of cloves or oil of peppermint (available exli-hpo-sulztkd in drug stores) directly to the tooth to reduce pain. Some pharmacies carry an bhtx-ouu-ydjbmgr toothache kit. This contains a paste, which can be applied over the exposed tooth to decrease sensitivity. A cold pack on your jaw over the sore area may help reduce pain. You may use acetaminophen (Tylenol) or ibuprofen (Motrin, Advil) to control pain, unless another medicine was prescribed. [NOTE: If you have chronic liver or kidney disease or ever had a stomach ulcer or GI bleeding, talk with your doctor before using these medicines.] An antibiotic will be prescribed. Take it exactly as directed. Do not miss any doses. Follow-Up as advised with a dentist or oral surgeon. Severe cases of cellulitis must be checked again within 24 hours. Once an infection occurs in a tooth, it will continue to be a problem until the infection is drained (surgery or root canal) or the tooth is pulled. Get Prompt Medical Attention if any of the following occur: Swelling spreads to the upper half of your face or your eyelids begin to swell shut Pain worsens or spreads to the neck Fever of 100.4F (38C) or higher, or as directed by your healthcare provider Unusual drowsiness, headache or a stiff neck; weakness or fainting Difficulty swallowing or breathing Clindamycin Hydrochloride Oral capsule What is this medicine? CLINDAMYCIN (KLIN da RAMYA sin) is a lincosamide antibiotic. It is used to treat certain kinds of bacterial infections. It will not work for colds, flu, or other viral infections. How should I use this medicine? Take this medicine by mouth with a full glass of water. Follow the directions on the prescription label. You can take this medicine with food or on an empty stomach. If the medicine upsets your stomach, take it with food. Take your medicine at regular intervals. Do not take your medicine more often than directed. Take all of your medicine as directed even if you think your are better. Do not skip doses or stop your medicine early. Talk to your crewman main battle tank regarding the use of this medicine in children. Special care may be needed. What side effects may I notice from receiving this medicine? Side effects that you should report to your doctor or health certified social workers in health care as soon as possible: allergic reactions like skin rash, itching or hives, swelling of the face, lips, or tongue dark urine pain on swallowing redness, blistering, peeling or loosening of the skin, including inside the mouth unusual bleeding or bruising unusually weak or tired yellowing of eyes or skin Side effects that usually do not require medical attention (report to your doctor or health certified social workers in health care if they continue or are bothersome): diarrhea itching in the rectal or genital area joint pain nausea, vomiting stomach pain What may interact with this medicine? chloramphenicol erythromycin kaolin products What if I miss a dose? If you miss a dose, take it as soon as you can. If it is almost time for your next dose, take only that dose. Do not take double or extra doses. Where should I keep my medicine? Keep out of the reach of children. Store at room temperature between 20 and 25 degrees C (68 and 77 degrees F). Throw away any unused medicine after the expiration date. What should I tell my health care provider before I take this medicine? They need to know if you have any of these conditions: kidney disease liver disease stomach problems like colitis an unusual or allergic reaction to clindamycin, lincomycin, or other medicines, foods, dyes like tartrazine or preservatives or trying to get breast-feeding What should I watch for while using this medicine? Tell your doctor or healthcare professional if your symptoms do not start to get better or if they get worse. Do not treat diarrhea with over the counter products. Contact your doctor if you have diarrhea that lasts more than 2 days or if it is severe and watery. You have been given the following additional information: Dental Abscess W/ Facial Cellulitis Clindamycin Hydrochloride Oral capsule (Electronically signed by Kathleen Tai P.A.-C 02/18/2017 23:09)
--- NOTE | 2017-02-18 23:09 | ED MAR SUMMARY ---
..... Medication Administration Record Former[facility] [address] [place] [address] Patient: PENNY RODRIGUEZ Visit ID: [id number] 31y, F Weight: 59.8 kg Height/Length: 64 in BMI: 22.6 ALLERGIES: Sulfa Antibiotics, Bactrim Start 20:07 02/18/2017 Mai Calvert REnedina, Stop 22:04 02/18/2017 Mai Calvert R.N. Medication Administered: IV NS (SALINE), Dose: IV Fluids over 2 hour(s), Rate: 500 mL/hr, Dispensed: 1000 mL bag, Site: #1 right AC. Medication Ordered: IV NS : initial bolus 1000 mL (1000 mL/hr), then 1000 mL/hr for X1 (NOW); Deepak. Given 20:59 02/18/2017 Nathalia Mendez R.N. Medication Administered: HYDROCODONE-APAP [PO] (HYDROCODONE-ACETAMINOPHEN), Dose: 1 tab 5/325 mg Tablets PO. Medication Ordered: Hydrocodone-APAP PO 5/325 mg (NOW, HIGH ALERT MEDICATION). Start 21:16 02/18/2017 Mai Calvert REnedina, Stop 21:45 02/18/2017 Amber Garcia REnedina Medication Administered: CLINDAMYCIN [IVPB], Dose: 900 mg IVPB over 30 minute(s), Rate: 100 mg/hr, Dispensed: 50 mL bag, Site: #1 right AC. Medication Ordered: Clindamycin IV 900 mg/50mL (NOW).
--- NOTE | 2017-02-18 23:09 | ED MAR SUMMARY ---
..... Medication Administration Record [facility] [address] [place] [address] Patient: PENNY RODRIGUEZ Visit ID: [id number] 31y, F Weight: 59.8 kg Height/Length: 64 in BMI: 22.6 ALLERGIES: Sulfa Antibiotics, Bactrim Start 20:07 02/18/2017 Mai Calvert REnedina, Stop 22:04 02/18/2017 Mai Calvert R.N. Medication Administered: IV NS (SALINE), Dose: IV Fluids over 2 hour(s), Rate: 500 mL/hr, Dispensed: 1000 mL bag, Site: #1 right AC. Medication Ordered: IV NS : initial bolus 1000 mL (1000 mL/hr), then 1000 mL/hr for X1 (NOW); Deepak. Given 20:59 02/18/2017 Nathalia Mendez R.N. Medication Administered: HYDROCODONE-APAP [PO] (HYDROCODONE-ACETAMINOPHEN), Dose: 1 tab 5/325 mg Tablets PO. Medication Ordered: Hydrocodone-APAP PO 5/325 mg (NOW, HIGH ALERT MEDICATION). Start 21:16 02/18/2017 Mai Calvert REnedina, Stop 21:45 02/18/2017 Amber Garcia REnedina Medication Administered: CLINDAMYCIN [IVPB], Dose: 900 mg IVPB over 30 minute(s), Rate: 100 mg/hr, Dispensed: 50 mL bag, Site: #1 right AC. Medication Ordered: Clindamycin IV 900 mg/50mL (NOW).
--- NOTE | 2017-02-18 23:09 | ED DISCHARGE INSTRUCTIONS ---
Patient: PENNY RODRIGUEZ General Instructions [facility] VisitID: [id number] [place] [address] 31y, F Registration Date/Time: 02/18/2017 Periapical dental abscess. INSTRUCTIONS Drink plenty of fluids. (warm packs to face warm salt water rinses inside mouth can stop antibiotic previously prescribed start CLINDAMYCIN, given dose in ER). Prescription Medications: Hydrocodone/APAP 5mg / 325mg: take 1 orally every 6 hours as needed for pain. (#4) Cleocin 300 mg: take 1 capsule orally every 6 hours for 10 days. No refill. Substitution is permissible. Ibuprofen 800 mg tablets: take 1 tablet orally every 8 hours for 5 days, as needed for pain. Dispense twenty (20). No refill. Follow-up: Follow up with a specialist in three days. ADDITIONAL INFORMATION Dental Abscess With Facial Cellulitis A dental abscess is an infection at the base of a tooth. When this is untreated, it spreads to the gum near the tooth causing swelling and pain. More severe infections cause facial swelling as the bacteria spread to the nearby tissues of the face. This is a very serious condition. Once the swelling begins, it can spread rapidly. A dental abscess usually starts with a crack or cavity in the tooth. The pain is often made worse by drinking hot or cold fluids, or biting on hard foods and may spread from the tooth to the ear or jaw on the same side. Home Care: Avoid hot and cold foods and liquids since your tooth may be sensitive to temperature changes. If your tooth is chipped or cracked, or if there is a large open cavity, apply oil of cloves or oil of peppermint (available nlrs-coq-hrxhyuw in drug stores) directly to the tooth to reduce pain. Some pharmacies carry an murp-qjn-xbvvghq toothache kit. This contains a paste, which can be applied over the exposed tooth to decrease sensitivity. A cold pack on your jaw over the sore area may help reduce pain. You may use acetaminophen (Tylenol) or ibuprofen (Motrin, Advil) to control pain, unless another medicine was prescribed. [NOTE: If you have chronic liver or kidney disease or ever had a stomach ulcer or GI bleeding, talk with your doctor before using these medicines.] An antibiotic will be prescribed. Take it exactly as directed. Do not miss any doses. Follow-Up as advised with a dentist or oral surgeon. Severe cases of cellulitis must be checked again within 24 hours. Once an infection occurs in a tooth, it will continue to be a problem until the infection is drained (surgery or root canal) or the tooth is pulled. Get Prompt Medical Attention if any of the following occur: Swelling spreads to the upper half of your face or your eyelids begin to swell shut Pain worsens or spreads to the neck Fever of 100.4F (38C) or higher, or as directed by your healthcare provider Unusual drowsiness, headache or a stiff neck; weakness or fainting Difficulty swallowing or breathing Clindamycin Hydrochloride Oral capsule What is this medicine? CLINDAMYCIN (KLIN da RAYMA sin) is a lincosamide antibiotic. It is used to treat certain kinds of bacterial infections. It will not work for colds, flu, or other viral infections. How should I use this medicine? Take this medicine by mouth with a full glass of water. Follow the directions on the prescription label. You can take this medicine with food or on an empty stomach. If the medicine upsets your stomach, take it with food. Take your medicine at regular intervals. Do not take your medicine more often than directed. Take all of your medicine as directed even if you think your are better. Do not skip doses or stop your medicine early. Talk to your director medicare sales regarding the use of this medicine in children. Special care may be needed. What side effects may I notice from receiving this medicine? Side effects that you should report to your doctor or health patient care provider as soon as possible: allergic reactions like skin rash, itching or hives, swelling of the face, lips, or tongue dark urine pain on swallowing redness, blistering, peeling or loosening of the skin, including inside the mouth unusual bleeding or bruising unusually weak or tired yellowing of eyes or skin Side effects that usually do not require medical attention (report to your doctor or health patient care provider if they continue or are bothersome): diarrhea itching in the rectal or genital area joint pain nausea, vomiting stomach pain What may interact with this medicine? chloramphenicol erythromycin kaolin products What if I miss a dose? If you miss a dose, take it as soon as you can. If it is almost time for your next dose, take only that dose. Do not take double or extra doses. Where should I keep my medicine? Keep out of the reach of children. Store at room temperature between 20 and 25 degrees C (68 and 77 degrees F). Throw away any unused medicine after the expiration date. What should I tell my health care provider before I take this medicine? They need to know if you have any of these conditions: kidney disease liver disease stomach problems like colitis an unusual or allergic reaction to clindamycin, lincomycin, or other medicines, foods, dyes like tartrazine or preservatives or trying to get breast-feeding What should I watch for while using this medicine? Tell your doctor or healthcare professional if your symptoms do not start to get better or if they get worse. Do not treat diarrhea with over the counter products. Contact your doctor if you have diarrhea that lasts more than 2 days or if it is severe and watery. You have been given the following additional information: Dental Abscess W/ Facial Cellulitis Clindamycin Hydrochloride Oral capsule (Electronically signed by Kathleen Tai P.A.-C 02/18/2017 23:09)
--- NOTE | 2017-02-18 23:10 | ED MED RECONCILIATION SUMMARY ---
Patient: PENNY RODRIGUEZ Medication Reconciliation Report [facility] VisitID: [id number] [address] [place] [address] 31y, F Registration Date/Time: 02/18/2017 Weight: 59.8 kg Height/Length: 64 in. BMI: 22.6 ALLERGIES: Bactrim, Sulfa Antibiotics The patient's Home Medications are listed below: NONE. The source(s) of the original Home Medication information: Not obtained. The following Medications were given to the patient in the Emergency Department: IV NS IV Fluids bolus 0, then 500 mL/hr, administered: 02/18/2017 8:07:00 PM Hydrocodone-APAP [PO] PO 1 tab, administered: 02/18/2017 8:59:00 PM Clindamycin [IVPB] IVPB bolus 0, then 900 mg 100 mg/hr, administered: 02/18/2017 9:16:00 PM The following Medications were prescribed to the patient: Hydrocodone/APAP 5mg / 325mg: take 1 orally every 6 hours as needed for pain.(#4) -- Kathleen Tai, P.A.-Jane Cleocin 300 mg: take 1 capsule orally every 6 hours for 10 days. No refill. Substitution is permissible. -- Kathleen Tai, P.A.-Jane Ibuprofen 800 mg tablets: take 1 tablet orally every 8 hours for 5 days, as needed for pain. Dispense twenty (20). No refill. -- Kathleen Tai P.A.-C
--- NOTE | 2017-02-18 23:10 | ED MED RECONCILIATION SUMMARY ---
Patient: PENNY RODRIGUEZ Medication Reconciliation Report [facility] VisitID: [id number] [address] [place] [address] 31y, F Registration Date/Time: 02/18/2017 Weight: 59.8 kg Height/Length: 64 in. BMI: 22.6 ALLERGIES: Bactrim, Sulfa Antibiotics The patient's Home Medications are listed below: NONE. The source(s) of the original Home Medication information: Not obtained. The following Medications were given to the patient in the Emergency Department: IV NS IV Fluids bolus 0, then 500 mL/hr, administered: 02/18/2017 8:07:00 PM Hydrocodone-APAP [PO] PO 1 tab, administered: 02/18/2017 8:59:00 PM Clindamycin [IVPB] IVPB bolus 0, then 900 mg 100 mg/hr, administered: 02/18/2017 9:16:00 PM The following Medications were prescribed to the patient: Hydrocodone/APAP 5mg / 325mg: take 1 orally every 6 hours as needed for pain.(#4) -- Kathleen Tai, P.A.-Jane Cleocin 300 mg: take 1 capsule orally every 6 hours for 10 days. No refill. Substitution is permissible. -- Kathleen Tai, P.A.-Jane Ibuprofen 800 mg tablets: take 1 tablet orally every 8 hours for 5 days, as needed for pain. Dispense twenty (20). No refill. -- Kathleen Tai P.A.-C
== END 2017-02-18 22:11 | disposition home or self-care (01) ==
LOC: ED SRH 18:21
DX: K04.7 Periapical abscess without sinus (principal)
CPT/HCPCS: 90047; 90197; 95059